=== PATIENT | female | born 1985 | race Hispanic/Latino ===

== ENCOUNTER 2020-11-14 00:31 | Emergency (ER) | payer SELFPAY ==
--- OUTSIDE RECORDS SUMMARY | 2020-11-14 00:34 | XMS REPORT | Continuity of Care Document ---
:1985 Author Organization [facility] t Address [address] [place] [address] Care Team Providers Name Role Phone Antionette Greenberg DO Attending Clinician Doctor Unassigned, Name Attending Clinician Unavailable Problems This patient has no known problems. Allergies, Adverse Reactions, Alerts This patient has no known allergies or adverse reactions. Medications This patient has no known medications. Procedures This patient has no known procedures. Encounters Start End Encounter Admission Attending Care Care Encounter Source Date/Time Date/Time Type Type Clinicians Facility Department ID 2020-11-11 2020-11-11 Emergency NANCY Greenberg [id number] 13:42:00 14:49:00 Aura Shea [id number] [place] [id number] [place] [id number] 2020-11-11 2020-11-11 Orders Doctor AUSTIN [id number] 00:00:00 00:00:00 Only UnassANNE mayorga [id number] [id number] Results This patient has no known results.
--- OUTSIDE RECORDS SUMMARY | 2020-11-14 00:34 | XMS REPORT | Summary of Care ---
:1985 Author Organization [facility] - Health Address [address] [place] [id number] Care Team Providers Name Role Phone Pcp, Does Not Have A Primary Care Provider Encounter Details Date Type Department Care Team Description 11/11/2020 Orders Only [facility] Doctor Unassigned, No [address] [facility] [place] [address] [address] [place] [address] Allergies No Known Allergiesdocumented as of this encounter (statuses as of 11/11/2020) Medications Medication Sig Dispensed Refills Start Date End Date Status meclizine (ANTIVERT) Take 1 Tab by 20 Tab 0 07/04/2015 Active 25 mg tablet mouth every 6 (six) hours as needed for Dizziness. ondansetron (ZOFRAN) 4 Take 1 Tab by 12 Tab 0 07/04/2015 Active mg tablet mouth every 8 (eight) hours. ondansetron (ZOFRAN) 4 Take 1 tablet by 12 tablet 0 09/15/2019 Active mg tabletIndications: mouth every 8 Alcoholic intoxication (eight) hours as without complication needed for Nausea and Vomiting (N/V). documented as of this encounter (statuses as of 11/11/2020) Active Problems No known active problemsdocumented as of this encounter (statuses as of 11/11/2020) Social History Tobacco Use Types Packs/Day Years Used Date Never Assessed Sex Assigned at Date Recorded Not on file documented as of this encounter Last Filed Vital Signs Not on filedocumented in this encounter Plan of Treatment Health Maintenance Due Date Last Done Comments VARICELLA VACCINES (1 of 2 1985 - 2-dose childhood series) Depression Screening 1996 DTaP,Tdap,and Td Vaccines 2003 (1 - Tdap) PAP SMEAR 04/24/2011 04/24/2008, 11/24/2006, 02/08/2006, Additional history exists INFLUENZA VACCINE (#1) 2020 PNEUMOCOCCAL 0-64 YEARS Aged Out No longe r eligible COMBINED SERIES based on patient 's age to complete this topic documented as of this encounter Procedures Procedure Name Priority Date/Time Associated Diagnosis Comme nts CONSENT/REFUSAL FOR Routine 11/11/2020 1:11 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
--- OUTSIDE RECORDS SUMMARY | 2020-11-14 00:34 | XMS REPORT | Summary of Care ---
:1985 Author Organization [facility] Address [address] [place] [id number] Care Team Providers Name Role Phone Pcp, Does Not Have A Primary Care Provider Reason for Visit Reason Comments Other covid like symptoms Auth/Cert Status Reason Specialty Diagnoses / Referred By Referred To Procedures Contact Contact Emergency [facility] ergency Dept [address] [place] [address] Fax: Encounter Details Date Type Department Care Team Description 11/11/2020 Emergency ADC-Emergency Aura Greenberg, Cough ( Primary Dx); Department DO Person under investigation for COVID-[address] [place] [address] [place] [address] [phone] Allergies No Known Allergiesdocumented as of this encounter (statuses as of 11/11/2020) Medications Medication Sig Dispensed Refills Start Date End Date Status meclizine (ANTIVERT) Take 1 Tab by 20 Tab 0 07/04/2015 Active 25 mg tablet mouth every 6 (six) hours as needed for Dizziness. ondansetron (ZOFRAN) Take 1 Tab by 12 Tab 0 07/04/2015 Active 4 mg tablet mouth every 8 (eight) hours. ondansetron (ZOFRAN) Take 1 tablet by 12 tablet 0 09/15/2019 Active 4 mg mouth every 8 tabletIndications: (eight) hours as Alcoholic needed for Nausea intoxication without and Vomiting complication (N/V). codeine-guaifenesin Take 5 mL by 140 mL 0 11/11/20202020 Active 10-100 mg/5 mL mouth every 6 solutionIndications: (six) hours as acute pain needed for Cough for up to 7 days. Indications: acute pain documented as of this encounter (statuses as of 11/11/2020) Active Problems No known active problemsdocumented as of this encounter (statuses as of 11/11/2020) Social History Tobacco Use Types Packs/Day Years Used Date Never Assessed Sex Assigned at Date Recorded Not on file COVID-19 Exposure Response Date Recorded In the last month, have you been in contact with No / Unsure 11/11/2020 1:27 PM PROCESS LABORATORY SPECIALIST someone who was confirmed or suspected to have Coronavirus / COVID-19? documented as of this encounter Last Filed Vital Signs Vital Sign Reading Time Taken Comments Blood Pressure 110/80 11/11/2020 2:43 PM PROCESS LABORATORY SPECIALIST Pulse 98 11/11/2020 2:43 PM PROCESS LABORATORY SPECIALIST Temperature 37.9 C (100.3 F) 11/11/2020 2:43 PM PROCESS LABORATORY SPECIALIST Respiratory Rate 20 11/11/2020 2:43 PM PROCESS LABORATORY SPECIALIST Oxygen Saturation 97% 11/11/2020 2:43 PM PROCESS LABORATORY SPECIALIST Inhaled Oxygen Concentration - - Weight 77.1 kg (170 lb) 11/11/2020 1:30 PM PROCESS LABORATORY SPECIALIST Height 149.9 cm (4' 11") 11/11/2020 1:30 PM PROCESS LABORATORY SPECIALIST Body Mass Index 34.34 11/11/2020 1:30 PM PROCESS LABORATORY SPECIALIST documented in this encounter Discharge Instructions Aura You DO - 1DIAGNOSIS 1. Possible COVID NO LIFE-THREATENING FINDINGS ON TODAY'S EXAM. PROCEDURES IN THE ER TODAY: Covid test MEDICATIONS ADMINISTERED IN THE ER TODAY: None YOUR PRESCRIPTIONS AND [id number] MEDICATION RECOMMENDATIONS: Robitussin AC by mouth every 6 hours as needed for cough. Do not drive while taking this medication. SPECIAL CARE INSTRUCTIONS: None FOLLOW-UP RECOMMENDATIONS: RECOMMEND FOLLOW-UP WITH A PRIMARY CARE PROVIDER OR SPECIALIST IN 2-5 DAYS, ESPECIALLY IF NO IMPROVEMENT IN SYMPTOMS. TO FOLLOW-UP WITHIN THE [facility], TRY THESE OPTIONS (CLINIC APPOINTMENTS AVAILABLE ON OFBH-DG-JNDH BASIS): 1. SCHEDULE AN APPOINTMENT ONLINE AT [email or web address] 2. OR CALL THE [facility] AT OR 3. OR CALL YOUR [facility] PHYSICIAN'S OFFICE DIRECTLY IF YOU ARE ALREADY AN ESTABLISHED [facility] PATIENT. OR, YOU MAY FOLLOW-UP WITH A PROVIDER OF YOUR CHOICE, SUCH : 1. A PHYSICIAN OF YOUR CHOICE 2. [facility], . LOCATIONS IN [facility] 3. [facility], [address] [place], [place]; [phone] RETURN TO ER FOR WORSENING OF SYMPTOMS. AttachmentsThe following attachments cannot be sent through Care Everywhere. Coronavirus Disease 2019, Caring for Yourself and Others (Libyan)documented in this encounter ED Notes Alma Ragland RN - 11/11/2020 1:28 PM CSTPatient tested negative for covid yesterday. Patient is having sob, fever, chills, diareah, loss of smell and taste since last Tuesday. Denies medical History. On one minute ambulation patient retained O2 sat 97% Aura Quinterso DO - 11/11/2020 1:12 PM CST [facility] Emergency Department Note Patient Name: Giovanna Lou Date of : 1985 35 year old female Treatment Room: [address] Primary Care Physician: PATIENT DOES NOT HAVE A PCP Patient Escorted by: Self [9] Mode of Arrival: Personal means [1] EMS Treatment Prior to ED Arrival: Travel and Exposure Screening: Symptoms Does patient have any of these symptoms?: (not recorded) Exposure Screening Has patient had contact with someone with a communicable disease in the last month?: (not recorded) Diseases exposed to:: (not recorded) Is Patient ?: (not recorded) Exposure Date: (not recorded) Chief Complaint: Chief Complaint Patient presents with Other covid like symptoms History of Present Illness: Patient presents for eval for cough, sob, diarrhea and not feeling well for about a week. Sick contacts at home. Does smoke. No h/o asthma or COPD. No h/o DM. Has been using hot tea, aspiring, Motrinand Tylenol at home. Also drinking plenty of fluids and juice. Had a negative covid test last week. Yesterday lost her sense of smell and taste. Also with some diarrhea today. No n/v. No chest pain. Here for eval. Past Medical History/Immunizations: No past medical history on file. Tetanus received in last 5 years: Unknown Childhood immunizations: Up-to-date Allergies: No Known Allergies Past Social History: Substance & Sexual Activity No substance use or sexual activity history on file. Past Surgical History: No past surgical history on file. Review of Systems: Review of Systems Constitutional: Negative for chills and fever. Respiratory: Positive for cough and shortness of breath. Cardiovascular: Negative for chest pain. Gastrointestinal: Positive for diarrhea. Negative for abdominal pain, nausea and vomiting. Genitourinary: Negative for dysuria. Musculoskeletal: Negative for arthralgias, neck pain and neck stiffness. Skin: Negative for wound. Neurological: Negative for dizziness and seizures. Psychiatric/Behavioral: Negative for agitation. Physical Exam: ED Triage Vitals [11/11/20 1330] Weight 77.1 kg (170 lb) Actual or estimated Height 1.499 m (4' 11") BP 108/78 Pulse 109 Resp 19 Temp 37.9 C (100.3 F) Temp source Oral SpO2 98 % Measured on Room air Physical Exam Vitals signs and nursing note reviewed. Constitutional: Appearance: Normal appearance. HENT: Head: Normocephalic and atraumatic. Neck: Musculoskeletal: Normal range of motion and neck supple. Cardiovascular: Rate and Rhythm: Normal rate and regular rhythm. Pulses: Normal pulses. Pulmonary: Effort: Pulmonary effort is normal. No respiratory distress. Breath sounds: No wheezing. Abdominal: General: There is no distension. Palpations: Abdomen is soft. There is no mass. Tenderness: There is no abdominal tenderness. There is no guarding. Musculoskeletal: Normal range of motion. Skin: General: Skin is warm and dry. Neurological: General: No focal deficit present. Mental Status: She is alert and oriented to person, place, and time. Radiology: No results found for this visit on 11/11/20. Lab Results (24h): No results found for this or any previous visit (from the past 24 hour(s)). Orders and Treatments: Orders Placed This Encounter Procedures CORONAVIRUS COVID-19 TESTING Orders Placed This Encounter Medications codeine-guaifenesin 10-100 mg/5 mL solution ED COURSE patient presents for eval for cough, sob, fevers and not feeling well x one week. Had negative covid test last week. Yesterday started with loss of smell and taste as well as diarrhea. Sick contacts at home. Using otc meds at home. Drinking plenty of fluids. VSS here in the EC. Ambulatory O2 sat of 97%. Lungs clear. Will send covid pcr. Will give rx for robitussin ac. Stable here in the EC and is ok for discharge home with PCP f/u. MDM: Coding Scoring Tools: No data recorded Diagnosis/Impression: ICD-10-CM ICD-9-CM 1. Cough R05 786.2 2. Person under investigation for COVID-19 Z20.822 V01.79 Disposition/Condition: ED Disposition ED Disposition Condition Comment Disch - Home Stable Discharge Medications: Patient's Medications START taking these medications CODEINE-GUAIFENESIN 10-100 MG/5 ML SOLUTION Take 5 mL by mouth every 6 (six) hours as needed forCough for up to 7 days. Indications: acute pain CONTINUE taking these medications which have NOT CHANGED MECLIZINE (ANTIVERT) 25 MG TABLET Take 1 Tab by mouth every 6 (six) hours as needed for Dizziness. ONDANSETRON (ZOFRAN) 4 MG TABLET Take 1 Tab by mouth every 8 (eight) hours. ONDANSETRON (ZOFRAN) 4 MG TABLET Take 1 tablet by mouth every 8 (eight) hours as needed for Nausea and Vomiting (N/V). START taking Modified Medications as Prescribed No medications on file STOP taking these medications No medications on file Follow-up: Electronically signed by: Auar Greenberg DO 11/11/2020 1:48 PM ESS LABORATORY SPECIALIST documented in this encounter Miscellaneous Notes ED Nurse Note - Alma Ragland RN - 11/11/2020 2:48 PM CSTDischarge teaching given. Patient verbalized understanding. Vitals stable. No acute distress noted. Patient ambulatory documented in this encounter Plan of Treatment Name Type Priority Associated Diagnoses Date/Ti me CORONAVIRUS COVID-19 LAB STAT Cough 021 2:01 PM PROCESS LABORATORY SPECIALIST TESTING Name Type Priority Associated Diagnoses Order S chedule CORONAVIRUS COVID-19 LAB Routine Cough ONCE fo r 1 Occurrences TESTING starting 2020 until 11/11/2020 Health Maintenance Due Date Last Done Comments [...] Name Priority Date/Time Associated Diagnosis Comme nts NOTICE OF PRIVACY Routine 11/11/2020 1:11 PM PROCESS LABORATORY SPECIALIST PRACTICES documented in this encounter Results Not on filedocumented in this encounter Visit Diagnoses Diagnosis Cough - Primary Person under investigation for COVID-19 documented in this encounter Additional Health Concerns Infection Onset Date Last Indicated Resolved Time COVID-19 Rule Out 11/11/2020 11/11/2020 documented as of this encounter
[2020-11-14] MEDS ORDERED: AZITHROMYCIN 500 MG INJ IVPB ONE (01:44)
[2020-11-14] MEDS ORDERED: dexAMETHasone 10 MG/ML VIAL ONE (01:45)
[2020-11-14] MEDS ORDERED: NA CHLORIDE 0.9% 250 ML ONE (01:45)
[2020-11-14] MEDS ORDERED: ASPIRIN 81 MG CHEWABLE TABLET ONE (01:45)
[2020-11-14] MEDS ORDERED: CEFTRIAXONE/SWI 1gm 1 GM/10 ML SYR ONE (01:46)
[2020-11-14] MEDS ORDERED: ALBUTEROL INHALER 60 PUFF/8 GM IH ONE (01:46)
[2020-11-14] MEDS ORDERED: FAMOTIDINE 20 MG/2 ML VIAL IV ONE (01:46)
[2020-11-14] MEDS ORDERED: NA CHLORIDE 0.9% 1,000 ML ONE (01:46)
[2020-11-14 01:50] LABS: Absolute Lymphocytes (CBC) 1.5 K/uL (0.7-4.9); Basophils % 0.2 % (0-1.3); Hematocrit 37.8 % (36.0-45.0); Lymphocytes % 46.1 % (15.3-44.8); MPV 7.7 fL (7.6-11.3); RBC Red Blood Cell Count 4.31 M/uL (3.86-4.86)
[2020-11-14 02:15] LABS: ALT/SGPT 28 U/L (12-78); AST/SGOT 31 U/L (15-37); Albumin 3.6 g/dL (3.4-5.0); Alkaline Phosphatase 81 U/L (45-117); BUN Blood Urea Nitrogen 7 mg/dL (7-18); Bicarbonate 27 mmol/L (21-32); Bilirubin Direct < 0.1 mg/dL (0-0.2); Bilirubin Total 0.3 mg/dL (0.2-1.0); Ferritin 248.6 ng/mL (8-388); Glucose Level 95 mg/dL (74-106); Magnesium 2.2 mg/dL (1.8-2.4); NT PRO-BNP 12 pg/mL (<125); Potassium 3.8 mmol/L (3.5-5.1); Sodium Level 141 mmol/L (136-145); Troponin (Emerg Dept Use Only) < 0.02 ng/mL (0.0-0.045)
--- NOTE | 2020-11-14 03:27 | ER ---
Nurse's Notes [facility] Name: Giovanna Lou Age: 35 yrs Sex: Female : 1985 Arrival Date: 11/14/2020 Time: 00:42 Bed 14 Private MD: Diagnosis: SARS-associated coronavirus as the cause of diseases classified elsewhere-covid 19;Dyspnea;Other viral pneumonia-multifocal covid 19 Presentation: 11/14 00:43 Acuity: CECILIA 4 sg 00:43 Chief complaint: Patient states: I was swabbed on Tuesday, November 10 and told sg positive result. Im feeling shortness of breath and having a dry cough. No other symptoms reported for triage at this time. Coronavirus screen: Client denies travel out of the [place] in the last 14 days. cough unrelated to allergies, fatigue, shortness of breath, Client presents with at least one sign or symptom that may indicate coronavirus-19. Standard/surgical mask placed on the client. Provider contacted for isolation considerations. Client reports previous positive COVID test result. Date of collection: November 10, 2020 are currently unavailable. Staff notified of need for isolation. Ebola Screen: Patient negative for fever greater than or equal to 101.5 degrees Fahrenheit, and additional compatible Ebola Virus Disease symptoms Patient denies exposure to infectious person. Patient denies travel to an Ebola-affected area in the 21 days before illness onset. No symptoms or risks identified at this time. Initial Sepsis Screen: Does the patient meet any 2 criteria? No. Patient's initial sepsis screen is negative. Does the patient have a suspected source of infection? No. Patient's initial sepsis screen is negative. Risk Assessment: Do you want to hurt yourself or someone else? Patient reports no desire to harm self or others. Onset of symptoms was November 14, 2020. Care prior to arrival: None. Transition of care: patient was not received from another setting of care. 00:43 Method Of Arrival: Ambulatory sg Triage Assessment: 00:43 General: Appears in no apparent distress. well groomed, well developed, well nourished, sg Behavior is calm, cooperative, appropriate for age. Pain: Complains of pain in body aches. Respiratory: Reports shortness of breath cough that is Onset: The symptoms/episode began/occurred yesterday, the patient has mild shortness of breath. Derm: Skin is pink, warm \T\ dry. SODA FLAKER: 03:00 LMP N/A - Unknown Historical: - Allergies: 00:44 No Known Allergies; sg - PMHx: 00:58 None; sg - PSHx: 00:44 Cholecystectomy; sg - Immunization history:: Adult Immunizations up to date. - Social history:: Smoking status: Patient denies any tobacco usage or history of. Screenin:56 Abuse screen: Denies threats or abuse. Denies injuries from another. Nutritional rv screening: No deficits noted. Tuberculosis screening: No symptoms or risk factors identified. Fall Risk None identified. Assessment: 01:55 General: Appears comfortable, Behavior is calm, cooperative. Pain: Denies pain. Neuro: rv Level of Consciousness is awake, alert, obeys commands, Oriented to person, place, time, situation. Cardiovascular: Patient's skin is warm and dry. Rhythm is sinus rhythm. Respiratory: Reports cough that is hacking, persistent Airway is patent Respiratory effort is even, unlabored, Breath sounds are coarse bilaterally. Derm: Skin is intact. 03:00 Reassessment: Patient appears in no apparent distress at this time. No changes from previously documented assessment. Patient and/or family updated on plan of care and expected duration. Pain level reassessed. Patient is alert, oriented x 3, equal unlabored respirations, skin warm/dry/pink. 04:00 Reassessment: Patient appears in no apparent distress at this time. Patient and/or family updated on plan of care and expected duration. Pain level reassessed. Patient is alert, oriented x 3, equal unlabored respirations, skin warm/dry/pink. Vital Signs: 00:43 Pulse 88; Resp 20 S; Pulse Ox 95% on R/A; sg 00:43 BP 132 / 88; Temp 98.8; Pain 2/10; sg 02:30 BP 117 / 75; Pulse 73; Resp 18; Pulse Ox 96% on R/A; 04:00 BP 119 / 77; Pulse 80; Resp 18; Pulse Ox 95% on R/A; ED Course: 00:42 Patient arrived in ED. es 00:43 Triage completed. sg 00:44 Arm band placed on. sg 01:00 Adriel Mclaughlin MD is Attending Physician. cassy 01:20 Inserted saline lock: 20 gauge in right antecubital area, using aseptic technique. rv Blood collected. 01:20 Initial lab(s) drawn, by me, sent to lab. First set of blood cultures drawn by me. rv 01:35 Second set of blood cultures drawn by me. rv 01:56 Patient has correct armband on for positive identification. toxicology teacher on. Pulse rv ox on. NIBP on. 02:02 Gerri Bella RN is Primary Nurse. 03:26 Attila Coyle MD is Referral Physician. cassy 04:07 No provider procedures requiring assistance completed. IV discontinued, intact, wh bleeding controlled, No redness/swelling at site. Administered Medications: 01:50 Drug: NS 0.9% 500 ml Route: IV; Rate: bolus; Site: right antecubital; 02:38 Follow up: Response: No adverse reaction; IV Status: Completed infusion 01:52 Drug: Decadron - Dexamethasone 10 mg Route: IVP; Site: right antecubital; 02:38 Follow up: Response: No adverse reaction 01:54 Drug: Rocephin 1 grams Route: IV; Rate: per protocol; Site: right antecubital; 02:37 Follow up: Response: No adverse reaction; IV Status: Completed infusion wh 01:56 Drug: Pepcid 20 mg Route: IVP; Site: right antecubital; 02:38 Follow up: Response: No adverse reaction 01:58 Drug: Zithromax 500 mg Route: IVPB; Infused Over: 1 hrs; Site: right antecubital; 02:37 Follow up: Response: No adverse reaction; IV Status: Completed infusion 02:00 Drug: Aspirin 81 mg Route: PO; 02:37 Follow up: Response: No adverse reaction 02:02 Drug: Albuterol HFA Inhaler 4 puffs Route: Inhalation; 02:37 Follow up: Response: No adverse reaction 02:39 Drug: NS 0.9% 1000 ml Route: IV; Rate: 125 ml/hr; Site: right antecubital; 04:07 Follow up: Response: No adverse reaction; IV Status: Order to discontinue infusion Outcome: 03:26 Discharge ordered by . cassy 04:07 Discharged to home ambulatory. 04:07 Condition: stable 04:07 Discharge instructions given to patient, Instructed on discharge instructions, follow up and referral plans. medication usage, POC Demonstrated understanding of instructions, follow-up care, medications, POC Prescriptions given X X5 04:08 Patient left the ED. Signatures: Trae Walton RN RN Adriel London MD MD cha Salyer, Edna es Habalo, Winsy, RN RN Rob Scott RN RN rv
--- NOTE | 2020-11-14 03:27 | EDPHYS ---
Physician Documentation [facility] Name: Giovanna Lou Age: 35 yrs Sex: Female : 1985 Arrival Date: 11/14/2020 Time: 00:42 Bed 14 Private MD: ED Physician Adriel Mclaughlin HPI: 11/14 02:52 This 35 yrs old Female presents to ER via Ambulatory with complaints of cassy Breathing Difficulty, + Covid test. 02:52 The patient has shortness of breath at rest, with light activity. Onset: The cassy symptoms/episode began/occurred 3 day(s) ago. Duration: The symptoms are continuous, and are steadily getting worse. The patient's shortness of breath has no apparent modifying factors. Associated signs and symptoms: Pertinent positives: non-productive cough, fever. Severity of symptoms: At their worst the symptoms were mild in the emergency department the symptoms are unchanged. The patient has not experienced similar symptoms in the past. 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 - Social history:: Smoking status: Patient denies any tobacco usage or history of. ROS: 02:53 Constitutional: Negative for fever, chills, and weight loss, Eyes: Negative for injury, cassy pain, redness, and discharge, ENT: Negative for injury, pain, and discharge, Neck: Negative for injury, pain, and swelling, Cardiovascular: Negative for chest pain, palpitations, and edema, Abdomen/GI: Negative for abdominal pain, nausea, vomiting, diarrhea, and constipation, Back: Negative for injury and pain, : Negative for injury, bleeding, discharge, and swelling, MS/Extremity: Negative for injury and deformity, Skin: Negative for injury, rash, and discoloration, Neuro: Negative for headache, weakness, numbness, tingling, and seizure, Psych: Negative for depression, anxiety, suicide ideation, homicidal ideation, and hallucinations, Allergy/Immunology: Negative for hives, rash, and allergies, Endocrine: Negative for neck swelling, polydipsia, polyuria, polyphagia, and marked weight changes, Hematologic/Lymphatic: Negative for swollen nodes, abnormal bleeding, and unusual bruising. 02:53 Respiratory: Positive for cough, with no reported sputum, dyspnea on exertion, shortness of breath, on exertion. wheezing, expiratory. Exam: 02:53 Constitutional: This is a well developed, well nourished patient who is awake, alert, cassy and in no acute distress. Head/Face: Normocephalic, atraumatic. Eyes: Pupils equal round and reactive to light, extra-ocular motions intact. Lids and lashes normal. Conjunctiva and sclera are non-icteric and not injected. Cornea within normal limits. Periorbital areas with no swelling, redness, or edema. ENT: Nares patent. No nasal discharge, no septal abnormalities noted. Tympanic membranes are normal and external auditory canals are clear. Oropharynx with no redness, swelling, or masses, exudates, or evidence of obstruction, uvula midline. Mucous membranes moist. Neck: Trachea midline, no thyromegaly or masses palpated, and no cervical lymphadenopathy. Supple, full range of motion without nuchal rigidity, or vertebral point tenderness. No Meningismus. Chest/axilla: Normal chest wall appearance and motion. Nontender with no deformity. No lesions are appreciated. Cardiovascular: Regular rate and rhythm with a normal S1 and S2. No gallops, murmurs, or rubs. Normal PMI, no JVD. No pulse deficits. Abdomen/GI: Soft, non-tender, with normal bowel sounds. No distension or tympany. No guarding or rebound. No evidence of tenderness throughout. Back: No spinal tenderness. No costovertebral tenderness. Full range of motion. Skin: Warm, dry with normal turgor. Normal color with no rashes, no lesions, and no evidence of cellulitis. MS/ Extremity: Pulses equal, no cyanosis. Neurovascular intact. Full, normal range of motion. Neuro: Awake and alert, GCS 15, oriented to person, place, time, and situation. Cranial nerves II-XII grossly intact. Motor strength 5/5 in all extremities. Sensory grossly intact. Cerebellar exam normal. Normal gait. Psych: Awake, alert, with orientation to person, place and time. Behavior, mood, and affect are within normal limits. 02:53 ECG was reviewed by the Attending Physician. 02:53 Respiratory: the patient does not display signs of respiratory distress, Respirations: normal, symetrical, no use of accessory muscles, no grunting, no evidence of nasal flaring, no appreciated paradoxical movements, no prolonged exhalations, no pursed lip breathing, no retractions, no shallow respirations, no splinting, no tachypnea, Breath sounds: decreased breath sounds, that are mild, rhonchi, that are mild, stridor, is not appreciated, + upper airway congestion. Respiratory rate: 20 02:53 Musculoskeletal/extremity: DVT Exam: No signs of deep vein thrombosis. no pain, no swelling, no tenderness, negative Homans' sign noted on exam, no appreciated bluish discoloration, no erythema, no increased warmth. Vital Signs: 00:43 Pulse 88; Resp 20 S; Pulse Ox 95% on R/A; sg 00:43 BP 132 / 88; Temp 98.8; Pain 2/10; sg 02:30 BP 117 / 75; Pulse 73; Resp 18; Pulse Ox 96% on R/A; wh 04:00 BP 119 / 77; Pulse 80; Resp 18; Pulse Ox 95% on R/A; wh MDM: 01:00 Patient medically screened. [facility] 02:55 Differential diagnosis: asthma, Bronchitis CHF exacerbation, Chronic Obstructive cassy Pulmonary Disease pneumonia, pulmonary edema, Pulmonary Embolism reactive airway disease. Antibiotic administration: The patient is discharged and will get outpatient antibiotics, Zithromax. The patient's Wells Deep Vein Thrombosis Score was calculated as follows: Total Score: 0-2 Pts- Low Risk. Differential Diagnosis: Bronchitis Influenza Sinusitis Pharyngitis Pneumonia. The patient's pulmonary embolism risk score was calculated as follows: Total Score: 0-2 points. This patient was found to be at low risk for a pulmonary embolism by using the Well's assessment criteria. Immunization status:. Data reviewed: vital signs, nurses notes, lab test result(s), EKG, radiologic studies, CT scan, plain films. Data interpreted: bit gatherer: rate is 88 beats/min, rhythm is regular, Pulse oximetry: on room air is 95 %. Test interpretation: by ED physician or midlevel provider: ECG, plain radiologic studies. 11/14 00:05 Order name: Basic Metabolic Panel [facility] 11/14 00:05 Order name: CBC with Diff [facility] 11/14 00:05 Order name: LFT's [facility] 11/14 00:05 Order name: Magnesium [facility] 01/22 01:05 Order name: NT PRO-BNP [facility] 11/14 01:05 Order name: Troponin (emerg Dept Use Only) [facility] 11/14 01:05 Order name: D-Dimer [facility] 11/14 01:05 Order name: Blood Culture Adult (2) [facility] 11/14 01:05 Order name: Ferritin [facility] 11/14 01:05 Order name: CRP [facility] 11/14 01:52 Order name: CBC with Automated Diff; Complete Time: 01:57 EDMS 11/14 01:55 Order name: D-Dimer; Complete Time: 01:57 EDMS 11/14 02:15 Order name: Basic Metabolic Panel; Complete Time: 02:48 EDMS 11/14 02:15 Order name: Liver (Hepatic) Function; Complete Time: 02:48 EDMS 11/14 01:05 Order name: XRAY Chest (1 view) [facility] 11/14 01:05 Order name: EKG; Complete Time: 01:06 [facility] 11/14 01:58 Order name: CT Chest For PE Angio [facility] 11/14 02:15 Order name: Troponin (Emerg Dept Use Only); Complete Time: 02:48 EDMS 11/14 02:15 Order name: NT PRO-BNP; Complete Time: 02:48 EDMS 11/14 02:15 Order name: C-Reactive Protein; Complete Time: 02:48 EDMS 11/14 02:15 Order name: Magnesium; Complete Time: 02:48 EDMS 11/14 02:15 Order name: Ferritin; Complete Time: 02:48 EDMS 11/14 01:05 Order name: Cardiac monitoring; Complete Time: 02:05 [facility] 11/14 01:05 Order name: EKG - Nurse/Tech; Complete Time: 02:05 [facility] 11/14 01:05 Order name: IV Saline Lock; Complete Time: 02:05 [facility] 11/14 01:05 Order name: Labs collected and sent; Complete Time: 02:05 [facility] 11/14 01:05 Order name: O2 Per Protocol; Complete Time: 02:05 [facility] 11/14 01:05 Order name: O2 Sat Monitoring; Complete Time: 02:05 [facility] EC:53 Rate is 76 beats/min. Rhythm is regular. QRS [place] is Normal. MO interval is normal. QRS cassy interval is normal. QT interval is normal. No Q waves. T waves are Normal. No ST changes noted. Clinical impression: Normal ECG and No evidence of ischemia. Interpreted by me. Reviewed by me. Administered Medications: 01:50 Drug: NS 0.9% 500 ml Route: IV; Rate: bolus; Site: right antecubital; 02:38 Follow up: Response: No adverse reaction; IV Status: Completed infusion 01:52 Drug: Decadron - Dexamethasone 10 mg Route: IVP; Site: right antecubital; 02:38 Follow up: Response: No adverse reaction 01:54 Drug: Rocephin 1 grams Route: IV; Rate: per protocol; Site: right antecubital; 02:37 Follow up: Response: No adverse reaction; IV Status: Completed infusion 01:56 Drug: Pepcid 20 mg Route: IVP; Site: right antecubital; 02:38 Follow up: Response: No adverse reaction 01:58 Drug: Zithromax 500 mg Route: IVPB; Infused Over: 1 hrs; Site: right antecubital; 02:37 Follow up: Response: No adverse reaction; IV Status: Completed infusion 02:00 Drug: Aspirin 81 mg Route: PO; 02:37 Follow up: Response: No adverse reaction 02:02 Drug: Albuterol HFA Inhaler 4 puffs Route: Inhalation; 02:37 Follow up: Response: No adverse reaction 02:39 Drug: NS 0.9% 1000 ml Route: IV; Rate: 125 ml/hr; Site: right antecubital; 04:07 Follow up: Response: No adverse reaction; IV Status: Order to discontinue infusion Disposition: 11/14/20 03:26 Discharged to Home. Impression: SARS-associated coronavirus as the cause of diseases classified elsewhere - covid 19, Dyspnea, Other viral pneumonia - multifocal covid 19. - Condition is Stable. - Discharge Instructions: Shortness of Breath, Shortness of Breath, Xmec-ht-Opqa, Community-Acquired Pneumonia, Adult, Rioh-pk-Vvik, Aspirin and Your Heart. - Prescriptions for dexamethasone 2 mg Oral tablet - take 1 tablet by ORAL route 3 times per day; 15 tablet. ivermectin 3 mg Oral tablet - take 4 tablet by ORAL route once daily x1 dose on day 1 and day 3.; 8 tablet. Albuterol Sulfate 90 mcg/actuation - inhale 1-2 puff by INHALATION route every 4-6 hours; 1 Inhaler. Pepcid 20 mg Oral Tablet - take 1 tablet by ORAL route every 12 hours; 20 tablet. Zithromax 500 mg Oral Tablet - take 1 tablet by ORAL route once daily for 4 days; 4 tablet. Bromfed DM 2- 30-10 mg/5 mL Oral syrup - take 10 milliliter by ORAL route every 6 hours; 180 milliliter. - Medication Reconciliation Form, Thank You Letter, Antibiotic Education, Prescription Opioid Use form. - Follow up: Private Physician; When: 2 - 3 days; Reason: Recheck today's complaints, Continuance of care, Re-evaluation by your physician. Follow up: Attila Coyle; When: 2 - 3 days; Reason: Recheck today's complaints, Continuance of care, Re-evaluation by your physician. - Problem is new. - Symptoms have improved. Signatures: Dispatcher [employer] EDTrae Carrasco RN RN sg Anderson, Corey, MD MD cha Habalo, Winsy, RN RN Corrections: (The following items were deleted from the chart) 04:08 03:26 11/14/2020 03:26 Discharged to Home. Impression: SARS-associated coronavirus as wh the cause of diseases classified elsewhere - covid 19; Dyspnea; Other viral pneumonia - multifocal covid 19. Condition is Stable. Discharge Instructions: Shortness of Breath, Shortness of Breath, Yugy-bh-Rihl, Community-Acquired Pneumonia, Adult, Expu-gx-Ekwg, Aspirin and Your Heart. Prescriptions for dexamethasone 2 mg Oral tablet - take 1 tablet by ORAL route 3 times per day; 15 tablet, ivermectin 3 mg Oral tablet - take 4 tablet by ORAL route once daily x1 dose on day 1 and day 3.; 8 tablet, Albuterol Sulfate 90 mcg/actuation - inhale 1-2 puff by INHALATION route every 4-6 hours; 1 Inhaler, Pepcid 20 mg Oral Tablet - take 1 tablet by ORAL route every 12 hours; 20 tablet, Zithromax 500 mg Oral Tablet - take 1 tablet by ORAL route once daily for 4 days; 4 tablet. and Forms are Medication Reconciliation Form, Thank You Letter, Antibiotic Education, Prescription Opioid Use. Follow up: Private Physician; When: 2 - 3 days; Reason: Recheck today's complaints, Continuance of care, Re-evaluation by your physician. Follow up: Attila Coyle; When: 2 - 3 days; Reason: Recheck today's complaints, Continuance of care, Re-evaluation by your physician. Problem is new. Symptoms have improved. cassy
[2020-11-14 04:13] VITALS: TEMP 98.8
[2020-11-14 04:16] VITALS: BP 119/77; O2SAT 95
--- NOTE | 2020-11-14 08:59 | RAD REPORT ---
EXAM DESCRIPTION: RAD - Chest Single View - 11/14/2020 1:36 am CLINICAL HISTORY: Chest pain;Dyspnea;Fever Chest pain. COMPARISON: No comparisons FINDINGS: Portable technique limits examination quality. Mild bilateral interstitial opacities suggest underlying viral bronchitis/infection. The heart is nor mal in size. No displaced fractures.
--- NOTE | 2020-11-14 12:19 | RAD REPORT ---
EXAM DESCRIPTION: Chest For Pe Angio CLINICAL HISTORY: Cough;Dyspnea COMPARISON: None Available. TECHNIQUE: CTA of the chest obtained following the uncomplicated intravenous administration of iodin ated contrast. 3-D/MIP reformatted images of the chest available for evaluation. FINDINGS: Chest: Pulmonary arteries: Contrast bolus is adequate.No filling defects identified in the pulmonary arterie s to suggest pulmonary embolus. Thyroid: No abnormalities of the visualized thyroid. Great Vessels: Great vessels have normal anatomic configuration. Thoracic Aorta: No abnormalities of the thoracic aorta identified. Heart: No cardiomegaly, significant pericardial effusion, or coronary artery atherosclerosis Lymph Nodes: No enlarged mediastinal lymph nodes identified. Esophagus: No abnormalities of the esophagus identified. Other: No additional findings. Lungs: Multifocal central and peripheral bilateral groundglass opacities. Calcified left upper lobe g ranuloma. Pleura: No pleural effusion or pneumothorax. Trachea/Airways: No abnormalities of the visualized trachea or airways. Bones: No destructive osseous lesions. Upper Abdomen: Limited images of the upper abdomen demonstrate no definite abnormalities of visualize d portions of the liver and spleen. IMPRESSION: 1. No pulmonary embolus. 2. Multifocal bilateral groundglass opacities. Commonly reported imaging features of viral pneumoni a are present. Other processes such as influenza pneumonia and organizing pneumonia, as can be seen w ith drug toxicity and connective tissue disease, can cause a similar imaging pattern. PneTyp Reference: https://pubs.rsna.org/doi/full/10.1148/ryct.3878616127 This exam was performed according to our departmental dose-optimization program, which includes autom ated exposure control, adjustment of the mA and/or kV according to patient size and/or use of iterati ve reconstruction technique. Electronically signed by: Russ Valentin 11/14/2020 3:17 AM LEAD BUSINESS ANALYST Due to temporary technical issues with the PACS/Fluency reporting system, reports are being signed by the in house radiologist without review as a courtesy to ensure prompt reporting. The interpreting r adiologist is fully responsible for the content of the report.
== END 2020-11-14 04:08 | disposition home or self-care (01) ==
LOC: ER 00:31
DX: U07.1 COVID-19 (principal); J12.82 Pneumonia due to coronavirus disease 2019
CPT/HCPCS: 36415; 71045; 71275; 80048; 80076; 82728; 83735; 83880; 84484; 85025; 85379; 86140; 87040; 93005; 96361; 96365; 96375; 99285; J0456; J0696; J1100; J7030; J7050; Q9967

== ENCOUNTER 2021-01-11 09:39 | Emergency (ER) | payer SELFPAY ==
--- OUTSIDE RECORDS SUMMARY | 2021-01-11 09:41 | XMS REPORT | Continuity of Care Document ---
:1985 Author Organization [facility] t Address [address] [place] [address] Care Team Providers Name Role Phone Nicki RN Attending Clinician Unavailable Antionette Greenberg DO Attending Clinician Doctor Unassigned, Name Attending Clinician Unavailable Problems This patient has no known problems. Allergies, Adverse Reactions, Alerts This patient has no known allergies or adverse reactions. Medications This patient has no known medications. Procedures This patient has no known procedures. Encounters Start End Encounter Admission Attending Care Care Encounter Source Date/Time Date/Time Type Type Clinicians Facility Department ID 2020-11-17 2020-11-17 Telephone NORMAN Caceres [id number] 00:00:00 00:00:00 Margarette RODRÍGUEZ [id number] 2020-11-11 2020-11-11 Emergency NANCY Greenberg [id number] 13:42:00 14:49:00 Aura Shea [id number] [place] [id number] 2020-11-11 2020-11-11 Orders Doctor AUSTIN [id number] 00:00:00 00:00:00 Only UnassANNE mayorga [id number] [place] [id number] Results This patient has no known results.
--- NOTE | 2021-01-11 10:34 | ER ---
Nurse's Notes [facility] Name: Giovanna Lou Age: 35 yrs Sex: Female : 1985 Arrival Date: 01/11/2021 Time: 09:41 Bed 13 Private MD: Diagnosis: Urinary tract infection, site not specified Presentation: 01/11 09:53 Acuity: CECILIA 4 aa5 09:53 Chief complaint: Chief complaint: Patient states: burning with urination x 4 days ago. aa5 09:53 Coronavirus screen: At this time, the client does not indicate any symptoms associated aa5 with coronavirus-19. Ebola Screen: Patient negative for fever greater than or equal to 101.5 degrees Fahrenheit, and additional compatible Ebola Virus Disease symptoms. Initial Sepsis Screen: Does the patient meet any 2 criteria? HR > 90 bpm. Does the patient have a suspected source of infection? No. Patient's initial sepsis screen is negative. Risk Assessment: Do you want to hurt yourself or someone else? Patient reports no desire to harm self or others. Onset of symptoms was December 2020. 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 - Social history:: Smoking status: Patient denies any tobacco usage or history of. Screenin:35 Abuse screen: Denies threats or abuse. Denies injuries from another. Nutritional iw screening: No deficits noted. Tuberculosis screening: No symptoms or risk factors identified. Fall Risk None identified. Assessment: 10:35 General: Appears in no apparent distress. Behavior is calm, cooperative. Pain: iw Complains of pain in suprapubic area. Neuro: Level of Consciousness is awake, alert, obeys commands, Oriented to person, place, time, situation. Cardiovascular: Patient's skin is warm and dry. Respiratory: Respiratory effort is even, unlabored, Respiratory pattern is regular, symmetrical. : Reports burning with urination. Derm: Skin is intact, is healthy with good turgor. Musculoskeletal: Range of motion: intact in all extremities. Vital Signs: 10:34 BP 116 / 81; Pulse 105; Resp 16; Temp 97.4; Pulse Ox 98% on R/A; iw ED Course: 09:41 Patient arrived in ED. am2 09:52 Arm band placed on. aa5 09:57 Triage completed. aa5 10:05 Adriel Chavez PA is PHCP. cp 10:05 Tevin Friend MD is Attending Physician. cp 10:26 Whit Greenberg, RN is Primary Nurse. iw 10:35 Patient has correct armband on for positive identification. iw 10:35 No provider procedures requiring assistance completed. Patient did not have IV access iw during this emergency room visit. Administered Medications: No medications were administered Outcome: 10:33 Discharge ordered by MD. cp 10:51 Discharged to home ambulatory. iw 10:51 Condition: good 10:51 Discharge instructions given to patient, Instructed on discharge instructions, follow up and referral plans. medication usage, Demonstrated understanding of instructions, follow-up care, medications, Prescriptions given X 2. 10:54 Patient left the ED. iw Signatures: Whit Greenberg RN RN Tisha Jones RN RN aa5 Adriel Chavez PA PA Mary Jane Vides am2 Corrections: (The following items were deleted from the chart) 10:01 09:53 Chief complaint: aa5 aa5 10:03 09:53 Chief complaint: aa5 aa5
--- NOTE | 2021-01-11 10:34 | EDPHYS ---
Physician Documentation [facility] Name: Giovanna Lou Age: 35 yrs Sex: Female : 1985 Arrival Date: 01/11/2021 Time: 09:41 Bed 13 Private MD: ED Physician Tevin Friend HPI: 01/11 10:15 This 35 yrs old Female presents to ER via Ambulatory with complaints of Pain cp With Urination. 10:15 The patient presents with urinary symptoms, dysuria. cp 10:15 Onset: The symptoms/episode began/occurred 4 day(s) ago. Associated signs and symptoms: cp Pertinent positives: dysuria, urinary frequency, Pertinent negatives: constipation, diarrhea, fever, nausea, vaginal bleeding, vaginal discharge, vomiting. Severity of symptoms: in the emergency department the symptoms are unchanged, despite home interventions. ATTENDING PHYSICIAN: 10:51 LMP N/A - iw Historical: - Allergies: 09:53 No Known Allergies; aa5 - PMHx: 09:53 None; aa5 - PSHx: 09:53 Cholecystectomy; aa5 - Immunization history:: Adult Immunizations unknown. - Social history:: Smoking status: Patient denies any tobacco usage or history of. ROS: 10:20 Constitutional: Negative for body aches, chills, fever, poor PO intake. cp 10:20 Eyes: Negative for injury, pain, redness, and discharge. cp 10:20 Cardiovascular: Negative for chest pain. 10:20 Respiratory: Negative for cough, shortness of breath, wheezing. 10:20 Abdomen/GI: Positive for abdominal pain, of the suprapubic area, Negative for nausea, vomiting, and diarrhea. 10:20 Back: Negative for pain at rest, pain with movement, radiated pain. 10:20 : Positive for burning with urination, Negative for vaginal bleeding, vaginal discharge. 10:20 Neuro: Negative for altered mental status, headache, weakness. 10:20 All other systems are negative. Exam: 10:23 Constitutional: The patient appears in no acute distress, alert, awake, comfortable, cp non-toxic, well developed, well nourished. 10:23 Head/Face: Normocephalic, atraumatic. cp 10:23 Eyes: Periorbital structures: appear normal, Conjunctiva: normal, Sclera: no appreciated abnormality, Lids and lashes: appear normal, bilaterally. 10:23 Chest/axilla: Inspection: normal. 10:23 Cardiovascular: Rate: tachycardic. 10:23 Respiratory: the patient does not display signs of respiratory distress, Respirations: normal, no use of accessory muscles, no retractions, labored breathing, is not present. 10:23 Abdomen/GI: Inspection: abdomen appears normal, Palpation: soft, in all quadrants, mild abdominal tenderness, in the suprapubic area. 10:23 Back: pain, is absent, ROM is normal, CVA tenderness, is absent. 10:23 Neuro: Orientation: is normal, Mentation: is normal, Motor: moves all fours, strength is normal, Gait: is steady, at a normal pace, without difficulty. Vital Signs: 10:34 BP 116 / 81; Pulse 105; Resp 16; Temp 97.4; Pulse Ox 98% on R/A; iw MDM: 10:07 Patient medically screened. cp 10:25 Differential diagnosis: pelvic inflammatory disease, urinary tract infection, cp vaginosis, sepsis. 10:32 Data reviewed: vital signs, nurses notes, lab test result(s), and as a result, I will cp discharge patient. 10:32 Counseling: I had a detailed discussion with the patient and/or guardian regarding: the cp historical points, exam findings, and any diagnostic results supporting the discharge/admit diagnosis, lab results, to return to the emergency department if symptoms worsen or persist or if there are any questions or concerns that arise at home. 01/11 10:23 Order name: Urine Dipstick--Ancillary (enter results) eb 01/11 10:23 Order name: Urine --Ancillary (enter results); Complete Time: 06:16 eb 01/11 10:06 Order name: Urine Dipstick-Ancillary (obtain specimen); Complete Time: 10:22 cp 01/11 10:06 Order name: Urine Test (obtain specimen); Complete Time: 10:22 cp 01/11 10:23 Order name: Urine Dipstick-Ancillary; Complete Time: 06:16 EDMS Administered Medications: No medications were administered Disposition: 01/11/21 10:33 Discharged to Home. Impression: Urinary tract infection, site not specified. - Condition is Stable. - Discharge Instructions: Urinary Tract Infection, Adult. - Prescriptions for Pyridium 200 mg Oral Tablet - take 1 tablet by ORAL route every 8 hours for 3 days; 6 tablet. Bactrim DS 800- 160 mg Oral Tablet - take 1 tablet by ORAL route every 12 hours for 7 days; 14 tablet. - Medication Reconciliation Form, Thank You Letter, Antibiotic Education, Prescription Opioid Use form. - Follow up: Private Physician; When: 2 - 3 days; Reason: Worsening of condition. - Problem is new. - Symptoms have improved. Addendum: 01/15/2021 19:35 Co-signature as Attending Physician, Tevin Friend MD. m a2 Signatures: Dispatcher [employer] EDWhit Palm RN RN iw Tisha Jones RN RN aa5 Adriel Chavez PA PA cp Alzahri, Mohammad, MD MD ma2 Corrections: (The following items were deleted from the chart) 01/11 10:54 10:33 01/11/2021 10:33 Discharged to Home. Impression: Urinary tract infection, site iw not specified. Condition is Stable. Forms are Medication Reconciliation Form, Thank You Letter, Antibiotic Education, Prescription Opioid Use. Follow up: Private Physician; When: 2 - 3 days; Reason: Worsening of condition. Problem is new. Symptoms have improved. cp
[2021-01-11 10:58] VITALS: BP 116/81; TEMP 97.4; O2SAT 98
[2021-01-11 11:21] LABS: Urine Glucose NEGATIVE (NEG)
[2021-01-11 11:22] LABS: Urine Blood 2+ (NEG); Urine Protein 2+ (NEG)
== END 2021-01-11 10:54 | disposition home or self-care (01) ==
LOC: ER 09:39
DX: N39.0 Urinary tract infection, site not specified (principal)
CPT/HCPCS: 81003; 81025; 99282

== ENCOUNTER 2021-01-13 09:39 | Emergency (ER) | payer SELFPAY ==
--- OUTSIDE RECORDS SUMMARY | 2021-01-13 09:42 | XMS REPORT | Continuity of Care Document ---
:1985 Author Organization [facility] t Address [address] [place] [address] Dr. Castro. [address] [place] [address] Care Team Providers Name Role Phone Nicki [...] Department ID 2020-11-17 2020-11-17 Telephone NORMAN Caceres [id number] 00:00:00 00:00:00 Margarette RODRÍGUEZ [id number] 2020-11-11 2020-11-11 Emergency NANCY Greenberg [id number] 13:42:00 14:49:00 Aura Shea [id number] [place] [id number] [place] [id number] 2020-11-11 2020-11-11 Orders Doctor AUSTIN [id number] 00:00:00 00:00:00 Only UnassANNE mayorga [id number] [place] [id number] Results This patient has no known results.
--- NOTE | 2021-01-13 10:35 | EDPHYS ---
Physician Documentation [facility] Name: Giovanna Lou Age: 35 yrs Sex: Female : 1985 Arrival Date: 01/13/2021 Time: 09:42 Bed 14 Private MD: ED Physician Jorden Dupree HPI: 01/13 10:30 This 35 yrs old Female presents to ER via Ambulatory with complaints of rn Urinary Problem. 10:30 The patient presents with urinary symptoms, dysuria, frequency. Onset: The rn symptoms/episode began/occurred 1 week(s) ago. Modifying factors: The symptoms are alleviated by nothing, the symptoms are aggravated by urinating. Associated signs and symptoms: Pertinent positives: dysuria, hematuria, Pertinent negatives: fever. Severity of symptoms: At their worst the symptoms were mild, in the emergency department the symptoms are unchanged. The patient has experienced a previous episode. The patient has been recently seen by a physician:. Reports seen recently for UTI, prescribed bactrim, symptoms not improving, reports still with dysuria and now with small amount of blood in urine, no flank or back pain, no fever/vomiting. . DIVER'S TENDER: 10:59 LMP N/A - control method ll1 Historical: - Allergies: 10:01 No Known Allergies; hb - Immunization history:: Adult Immunizations up to date. - Family history:: not pertinent. - Social history:: Smoking status: Patient denies any tobacco usage or history of. - Hospitalizations: : No recent hospitalization is reported. ROS: 10:30 Constitutional: Negative for fever, chills, and weight loss, Eyes: Negative for injury, rn pain, redness, and discharge, Neck: Negative for injury, pain, and swelling, Cardiovascular: Negative for chest pain, palpitations, and edema, Respiratory: Negative for shortness of breath, cough, wheezing, and pleuritic chest pain, Abdomen/GI: Negative for nausea, vomiting, diarrhea, and constipation, Back: Negative for injury and pain, : + dysuria and small amount of hematuria MS/Extremity: Negative for injury and deformity, Neuro: Negative for headache, weakness, numbness, tingling, and seizure. Exam: 10:30 Constitutional: This is a well developed, well nourished patient who is awake, alert, rn and in no acute distress. Head/Face: Normocephalic, atraumatic. Cardiovascular: Regular rate and rhythm. No pulse deficits. Respiratory: No increased work of breathing, no retractions or nasal flaring. Abdomen/GI: soft, non-tender Back: No spinal tenderness. No costovertebral tenderness. Full range of motion. Skin: Warm, dry with normal turgor. Normal color with no rashes, no lesions, and no evidence of cellulitis. Neuro: Awake and alert, GCS 15 Vital Signs: 09:59 BP 109 / 60; Pulse 77; Resp 16; Temp 98.2; Pulse Ox 100% ; Pain 8/10; hb MDM: 10:22 Patient medically screened. rn 10:30 Differential diagnosis: urinary tract infection. Data reviewed: vital signs, nurses rn notes, old medical records, and as a result, I will discharge patient. Counseling: I had a detailed discussion with the patient and/or guardian regarding: the historical points, exam findings, and any diagnostic results supporting the discharge/admit diagnosis, the need for outpatient follow up, to return to the emergency department if symptoms worsen or persist or if there are any questions or concerns that arise at home. Special discussion: I discussed with the patient/guardian in detail that at this point there is no indication for admission to the hospital. It is understood, however, that if the symptoms persist or worsen the patient needs to return immediately for re-evaluation. ED course: Pt still with UTI, no signs of pyelonephritis, stable vitals, likely still cystitis and perhaps resistant to bactrim, will replace abx with rocephin IM here and Vantin at home.. Administered Medications: 10:42 Drug: Rocephin (cefTRIAXone) 1 grams Route: IM; Site: left gluteus; ll1 10:59 Follow up: Response: No adverse reaction; RASS: Alert and Calm (0) ll1 Disposition: 01/13/21 10:34 Discharged to Home. Impression: Urinary tract infection, site not specified. - Condition is Stable. - Discharge Instructions: Urinary Tract Infection, Adult. - Prescriptions for cefpodoxime 100 mg Oral Tablet - take 2 tablet by ORAL route every 12 hours for 10 days take with food; 40 tablet. - Medication Reconciliation Form, Thank You Letter, Antibiotic Education, Prescription Opioid Use form. - Follow up: Private Physician; When: As needed; Reason: Recheck today's complaints, Re-evaluation by your physician. - Problem is new. - Symptoms are unchanged. Signatures: Jorden Dupree MD MD rn Baxter, Heather, RN RN hb Lewis, Lynsay, RN RN ll1 Corrections: (The following items were deleted from the chart) 10:59 10:34 01/13/2021 10:34 Discharged to Home. Impression: Urinary tract infection, site ll1 not specified. Condition is Stable. Forms are Medication Reconciliation Form, Thank You Letter, Antibiotic Education, Prescription Opioid Use. Follow up: Private Physician; When: As needed; Reason: Recheck today's complaints, Re-evaluation by your physician. Problem is new. Symptoms are unchanged. rn
--- NOTE | 2021-01-13 10:35 | ER ---
Nurse's Notes [facility] Name: Giovanna Lou Age: 35 yrs Sex: Female : 1985 Arrival Date: 01/13/2021 Time: 09:42 Bed 14 Private MD: Diagnosis: Urinary tract infection, site not specified Presentation: 01/13 09:59 Chief complaint: Seen in ED 2 days ago for UTI, reports worsening pain and blood in hb urine today. Coronavirus screen: At this time, the client does not indicate any symptoms associated with coronavirus-19. Ebola Screen: No symptoms or risks identified at this time. Initial Sepsis Screen: Does the patient meet any 2 criteria? No. Patient's initial sepsis screen is negative. Does the patient have a suspected source of infection? No. Patient's initial sepsis screen is negative. Risk Assessment: Do you want to hurt yourself or someone else? Patient reports no desire to harm self or others. Onset of symptoms was January 09, 2021. 09:59 Method Of Arrival: Ambulatory hb 09:59 Acuity: CECILIA 3 hb DIRECTOR OF EXHIBITS: 10:59 LMP N/A - control method ll1 Historical: - Allergies: 10:01 No Known Allergies; hb - Immunization history:: Adult Immunizations up to date. - Family history:: not pertinent. - Social history:: Smoking status: Patient denies any tobacco usage or history of. - Hospitalizations: : No recent hospitalization is reported. Screenin:45 Abuse screen: Denies threats or abuse. Nutritional screening: No deficits noted. ll1 Tuberculosis screening: No symptoms or risk factors identified. Fall Risk None identified. Total Sanchez Fall Scale indicates No Risk (0-24 pts). Assessment: 10:44 General: Appears in no apparent distress. Behavior is calm, cooperative, appropriate ll1 for age. Pain: Denies pain. Neuro: No deficits noted. Cardiovascular: No deficits noted. : Urine is clear, orange tinged Reports burning with urination. Vital Signs: 09:59 BP 109 / 60; Pulse 77; Resp 16; Temp 98.2; Pulse Ox 100% ; Pain 8/10; hb ED Course: 09:42 Patient arrived in ED. mr 10:00 Triage completed. hb 10:01 Arm band placed on. hb 10:22 Jorden Dupree MD is Attending Physician. rn 10:22 Barney Sears, MAX is Primary Nurse. ll1 10:45 Patient has correct armband on for positive identification. Bed in low position. Call ll1 light in reach. Side rails up X 1. Cardiac monitoring not applicable on this patient. 10:59 No provider procedures requiring assistance completed. Patient did not have IV access ll1 during this emergency room visit. Administered Medications: 10:42 Drug: Rocephin (cefTRIAXone) 1 grams Route: IM; Site: left gluteus; ll1 10:59 Follow up: Response: No adverse reaction; RASS: Alert and Calm (0) ll1 Outcome: 10:34 Discharge ordered by MD. rn 10:59 Discharged to home ambulatory. ll1 10:59 Condition: stable 10:59 Discharge instructions given to patient, Instructed on discharge instructions, follow up and referral plans. medication usage, Demonstrated understanding of instructions, follow-up care, medications, Prescriptions given X 1. 10:59 Patient left the ED. ll1 Signatures: Arnie Caterina Jorden Martinez MD MD rn Baxter, Heather, RN RN hb Lewis, Lynsay, MAX RN ll1
[2021-01-13] MEDS ORDERED: LIDOCAINE 1% MPF 2 ML AMPULE ONE (10:53)
[2021-01-13] MEDS ORDERED: CEFTRIAXONE 1000 MG/VIAL ONE (10:53)
[2021-01-13 11:16] VITALS: BP 109/60; TEMP 98.2; O2SAT 100
== END 2021-01-13 10:59 | disposition home or self-care (01) ==
LOC: ER 09:39
DX: N39.0 Urinary tract infection, site not specified (principal); R31.9 Hematuria, unspecified
CPT/HCPCS: 96372; 99283; J2001

== ENCOUNTER → 2023-11-25 | Emergency (ER) | payer SELFPAY ==
[~2023-11-25] MED LIST: CEFTRIAXONE 1000 MG/VIAL ONE; CODEINE 30MG/APAP 300MG TAB ONE; LIDOCAINE 1% MPF 2 ML AMPULE ONE
--- OUTSIDE RECORDS SUMMARY | 2023-11-25 21:55 | XMS REPORT | Continuity of Care Document ---
Author Name Unknown Address [address] [facility] [address] [place] [address] [facility] thconnect Address [address] [facility] [address] [place] [address] Care Team Providers Care Industrial Sewer Name Role Phone GC_[email or web address]_S Attending Clinician Ruthie Caceres RN, Margarette Attending Clinician Unavailab Aura Kraft DO Attending Clinician Doctor Unassigned, [place] Attending Clinician AURELIO Newton Attending Clinician Unavailable GRICELDA_GCBZW_Kayandya_S Admitting Clinician Ruthie gann Payers Payer Name Policy Type Policy Number Effective Date Expirati on Date Source SELF-PAY [id number] MEDICAID ALIEN PENDING PENDING 2019 00:00:00 2019 00:00:00 Allergies, Adverse Reactions, Alerts Allergy Name Allergy Type Status Severity Reaction(s) Onset Date Inactive Date Treating Clinician Comments Source NO KNOWN ALLERGIE S Drug Class Active [facility] Encounters Start Date/Time End Date/Time Encounter Type Admission Type Attending Clinicians Care Facility Care Department Encounter ID Source 2023-02-12 20:24:40 Outpatient IBNS IBNS [id number] - [id number] Denys Tomasz 2023-08-23 00:00:00 2023-08-23 00:00:00 Outpatient GRICELDA_GCBZW_Ka diyala_S PRIV [facility] [id number] [facility] 2020-11-17 00:00:00 2020-11-17 00:00:00 Telephone Margarette Caceres [facility] [id number] 2020-11-11 13:42:00 2020-11-11 14:49:[address] [facility] [id number] 2020-11-11 13:12:00 2020-11-11 13:12:00 Emergency X [facility] ERT [id number] [facility] 2020-11-11 00:00:00 2020-11-11 00:00:00 Orders Only Doctor Unassigned, [place] [facility] [id number] 2019-09-15 00:32:39 2019-09-15 02:23:00 Emergency X SHAY VILLALOBOSCHRISTOPHERARUN [facility] ERT [id number] [facility] Results Test Description Test Time Test Comments Results Result Co mments Source [id number] 06:39:13* Test Item Value Reference Range Interpretation Comme [facility] FERRITIN (test code = 2075) 110 NG/ML 13-200 VITAMIN B 12 AND FOLIC [id number] 06:39:13* Test Item Value Reference Range Interpretation Comme [facility] VITAMIN B-12 (test code = 2840) 412 PG/ML 200-950 FOLIC ACID (test code = 2695) >20.0 UG/L SEE BELOW INTERPRETI VE RANGES DEFICIENCY . . . . . . . . . . . . . . . UG/L <4.0 POSSIBLE DEFICIENCY. . . . . . . . . . . UG/L 4.0-5.9 SUFFICIENT . . . . . . . . . . . . . . . UG/L >=6.0 [facility] has important pathology staff changes effective 12/22/2022. New pathology staff will provide uninterrupted, excellent patient care and clinical consultation. See URL: [email or web address]. UNLESS OTHERWISE INDICATED, ALL TESTING PERFORMED AT [facility] [address] [place] [address] MARZIPAN MOLDER: JASMEET CHOWDARY M.D. [place] NUMBER [id number] [facility] [place]. [id number] 04:33:07* Test Item Value Reference Range Interpretation Comme nts TRANSFERRIN (test code = 4936) 306 MG/DL 200-360 LIPID [id number] 04:32:35* Test Item Value Reference Range Interpretation Comme nts CHOLESTEROL (test code = 2210) 148 MG/DL <200 TRIGLYCERIDES (test code = 2232) 82 MG/DL <150 HDL CHOLESTEROL (test code = 2220) 43 MG/DL >39 CALC LDL CHOL (test code = 2237) 88 MG/DL <100 NOTE: CALCULATED LDL IS BASED ON NEERAJ-HUDDLESTON METHOD WHICHINCLUDES ADJUSTABLE TRIGLYCERIDE:VLDL CHOLESTEROL RATIO.THIS FACTOR VARIES BY MEASURED TRIGLYCERIDE AND NON-HDLCHOLESTEROL CONCENTRATIONS WITH INCREASED CALCULATED LDL SEENIN HIGHER TRIGLYCERIDE OR LOWER NON-HDL SPECIMENS. FOR MOREINFORMATION, SEE CLIENT ANNOUNCEMENT AT [email or web address] RATIO LDL/HDL (test code = 2238) 2.05 RATIO <3.22 IRON, [id number] 04:32:35* Test Item Value Reference Range Interpretation Comme nts IRON, SERUM (test code = 2222) 71 UG/DL 37-145 HEMOGLOBIN [id number] 04:04:39* Test Item Value Reference Range Interpretation Comme nts HEMOGLOBIN A1c (test code = 61986) 5.1 % 4.2-5.6 CBC W/AUTO DIFF WITH [id number] 03:24:12* Test Item Value Reference Range Interpretation Comme nts WBC (test code = 1001) 6.8 K/UL 3.5-11.0 RBC (test code = 1002) 4.38 M/UL 3.80-5.40 HEMOGLOBIN (test code = 1003) 12.9 G/DL 11.5-15.5 HEMATOCRIT (test code = 1004) 39.1 % 34.0-45.0 MCV (test code = 1005) 89.3 fL 80.0-99.0 MCH (test code = 1006) 29.5 PG 25.0-33.0 MCHC (test code = 1007) 33.0 G/DL 31.0-36.0 RDW (test code = 1038) 12.7 % 11.5-15.0 NEUTROPHILS (test code = 1008) 61.3 % LYMPHOCYTES (test code = 1010) 29.9 % MONOCYTES (test code = 1011) 6.7 % EOSINOPHILS (test code = 1012) 1.5 % BASOPHILS (test code = 1013) 0.3 % IMMATURE GRANULOCYTES (test code = 1036) 0.3 % NUCLEATED RBCS (test code = 1065) 0.0 /100 WBC'S See_Comment [Automated messa ge] The system which generated this result transmitted reference range: 0.0. The reference range was not used to interpret this result as normal/abnormal. PLATELET COUNT (test code = 1015) 342 K/UL 130-400 ABSOLUTE NEUTROPHILS (test code = 1066) 4.15 K/UL 1.50-7.50 ABSOLUTE LYMPHOCYTES (test code = 1067) 2.02 K/UL 1.00-4.00 ABSOLUTE MONOCYTES (test code = 1068) 0.45 K/UL 0.20-1.00 ABSOLUTE EOSINOPHILS (test code = 1040) 0.10 K/UL 0.00-0.50 ABSOLUTE BASOPHILS (test code = 1069) 0.02 K/UL 0.00-0.20 ABS IMMATURE GRANULOCYTES (test code = 1020) 0.02 K/UL 0.00-0.10 ABS NUCLEATED RBCS (test code = 00372) 0.00 K/UL 0.00-0.11 CBC W/AUTO DIFF WITH [id number] 08:58:52* Test Item Value Reference Range Interpretation Comme nts WBC (test code = 1001) 6.9 K/UL 3.5-11.0 RBC (test code = 1002) 4.56 M/UL 3.80-5.40 HEMOGLOBIN (test code = 1003) 13.3 G/DL 11.5-15.5 HEMATOCRIT (test code = 1004) 41.2 % 34.0-45.0 MCV (test code = 1005) 90.4 fL 80.0-99.0 MCH (test code = 1006) 29.2 PG 25.0-33.0 MCHC (test code = 1007) 32.3 G/DL 31.0-36.0 RDW (test code = 1038) 13.0 % 11.5-15.0 NEUTROPHILS (test code = 1008) 64.4 % LYMPHOCYTES (test code = 1010) 29.2 % MONOCYTES (test code = 1011) 4.1 % EOSINOPHILS (test code = 1012) 1.6 % BASOPHILS (test code = 1013) 0.4 % IMMATURE GRANULOCYTES (test code = 1036) 0.3 % NUCLEATED RBCS (test code = 1065) 0.0 /100 WBC'S See_Comment [Automated Snip.lya ge] The system which generated this result transmitted reference range: 0.0. The reference range was not used to interpret this result as normal/abnormal. PLATELET COUNT (test code = 1015) 352 K/UL 130-400 ABSOLUTE NEUTROPHILS (test code = 1066) 4.44 K/UL 1.50-7.50 ABSOLUTE LYMPHOCYTES (test code = 1067) 2.01 K/UL 1.00-4.00 ABSOLUTE MONOCYTES (test code = 1068) 0.28 K/UL 0.20-1.00 ABSOLUTE EOSINOPHILS (test code = 1040) 0.11 K/UL 0.00-0.50 ABSOLUTE BASOPHILS (test code = 1069) 0.03 K/UL 0.00-0.20 ABS IMMATURE GRANULOCYTES (test code = 1020) 0.02 K/UL 0.00-0.10 ABS NUCLEATED RBCS (test code = 66736) 0.00 K/UL 0.00-0.11 COMPREHENSIVE METABOLIC [id number] 06:08:47* Test Item Value Reference Range Interpretation Comme nts GLUCOSE (test code = 2217) 124 MG/DL 70-99 H BUN (test code = 2208) 11 MG/DL 6-20 CREATININE (test code = 2214) 0.68 MG/DL 0.60-1.30 eGFR (2020 CKD-EPI) (test code = 65367) 115 ML/MIN/1.73 >60 CALC BUN/CREAT (test code = 2235) 16 RATIO 6-28 SODIUM (test code = 223) 142 MEQ/L 133-146 POTASSIUM (test code = 2228) 4.2 MEQ/L 3.5-5.4 CHLORIDE (test code = 2215) 106 MEQ/L 95-107 CARBON DIOXIDE (test code = 2205) 23 MEQ/L 19-31 CALCIUM (test code = 2208) 9.6 MG/DL 8.5-10.5 PROTEIN, TOTAL (test code = 2228) 7.2 G/DL 6.1-8.3 ALBUMIN (test code = 2200) 4.6 G/DL 3.5-5.2 CALC GLOBULIN (test code = 0) 2.6 G/DL 1.9-3.7 CALC A/G RATIO (test code = 2233) 1.8 RATIO 1.0-2.6 BILIRUBIN, TOTAL (test code = 2206) <0.2 MG/DL See_Comment [Automated me ssage] The system which generated this result transmitted reference range: <=1.2. The reference range was not used to interpret this result as normal/abnormal. ALKALINE PHOSPHATASE (test code = 2203) 63 U/L 40-112 AST (test code = 8) 19 U/L 9-40 ALT (test code = 2219) 17 U/L 5-40 UNLESS OTHERWISE INDICATED, ALL TESTING PERFORMED [facility] [address] [place] [address] MARZIPAN MOLDER: JASMEET CHOWDARY M.D. CLIA NUMBER [id number] [facility] [place]. [id number] OVA AND PARASITES WITH TRICHROME [id number] 20:34:02* Test Item Value Reference Range Interpretation Comme nts O AND P CONCENTRATE #1 (test code = 598793) NEGATIVE NEGATIVE O AND P TRICHROME #1 (test code = 414513) NEGATIVE NEGATIVE O AND P CONCENTRATE #2 (test code = 241614) NEGATIVE NEGATIVE O AND P TRICHROME #2 (test code = 003239) NEGATIVE NEGATIVE O AND P CONCENTRATE #3 (test code = 289209) TEST NOT PERFORMED NEGATIVE NO SPECIMEN RECEIVED FOR TESTING. CHARGES DELETED. O AND P TRICHROME #3 (test code = 523996) TEST NOT PERFORMED NEGATIVE NO SPECIMEN RECEIVED FOR TESTING. CHARGES DELETED. UNLESS OTHERWISE INDICATED, ALL TESTING PERFORMED [facility] [address] [place] [address] MARZIPAN MOLDER: JASMEET CHOWDARY M.D. CLIA NUMBER [id number] [place]. [id number] OVA AND PARASITES WITH TRICHROME [id number] 20:28:13* Test Item Value Reference Range Interpretation Comme nts O AND P CONCENTRATE #1 (test code = 734899) NEGATIVE NEGATIVE O AND P TRICHROME #1 (test code = 924311) NEGATIVE NEGATIVE O AND P CONCENTRATE #2 (test code = 167660) TEST NOT PERFORMED NEGATIVE NO SPECIMEN RECEIVED FOR TESTING. CHARGES DELETED. O AND P TRICHROME #2 (test code = 302762) TEST NOT PERFORMED NEGATIVE NO SPECIMEN RECEIVED FOR TESTING. CHARGES DELETED. O AND P CONCENTRATE #3 (test code = 162615) TEST NOT PERFORMED NEGATIVE NO SPECIMEN RECEIVED FOR TESTING. CHARGES DELETED. O AND P TRICHROME #3 (test code = 811391) TEST NOT PERFORMED NEGATIVE NO SPECIMEN RECEIVED FOR TESTING. CHARGES DELETED. UNLESS OTHERWISE INDICATED, ALL TESTING PERFORMED [facility], [facility]. [address] [place] [address] MARZIPAN MOLDER: JASMEET CHOWDARY M.D. CLIA NUMBER [id number] [place]. [id number] CALPROTECTIN, [id number] 18:58:18* Test Item Value Reference Range Interpretation Comme nts CALPROTECTIN, FECAL (test code = 41851) 69 mcg/g <50 H Interpretive inf ormation:<50 Normal 50 - 120 Borderline, re-evaluate in 4-6 weeks>120 Abnormal, suggestive of IBD Fecal calprotectin is an indicator of neutrophils in stool and notspecific for inflammatory bowel disease (IBD). Other conditionsincluding infections, diverticular disease, proton pump inhibitors,and neoplasms, among others, can result in elevated calprotectin.Patients with inactive IBD may not have elevated calprotectinlevels. TESTING PERFORMED AT [facility] [address] [place] [address], [address] [address] CLIA NO: [id number] UNLESS OTHERWISE INDICATED, ALL TESTING [facility]FORMED [facility], [facility]. [address] [place] [address] MARZIPAN MOLDER: JASMEET CHOWDARY M.D. CLIA NUMBER [id number] [place] [id number] FECAL FAT, [id number] 16:06:44* Test Item Value Reference Range Interpretation Comme nts FECAL NEUTRAL FAT (test code = 12119) Normal Normal FECAL SPLIT FAT (test code = 10854) Normal Normal INTERPRETIVE INF ORMATION: Fecal Fat QualitativeNeutral fats include the monoglycerides, diglycerides, andtriglycerides while split fats are the free fatty acidsthat are liberated from them. Impaired synthesis orsecretion of pancreatic enzymes or bile may cause anincrease in neutral fats while an increase in split fats suggests impaired absorption of nutrients. TESTING PERFORMED AT [facility] [address] [place] [address] [place]. [id number] CLIA NO. [id number] UNLESS OTHERWISE INDICATED, ALL TESTING PERFORMED [facility] [address] [place] [address] MARZIPAN MOLDER: JASMEET CHOWDARY M.D. CLIA NUMBER [id number] [place] [id number] COMPREHENSIVE METABOLIC [id number] 03:41:46* Test Item Value Reference Range Interpretation Comme nts GLUCOSE (test code = 2217) 80 MG/DL 70-99 BUN (test code = 8) 8 MG/DL 6-20 CREATININE (test code = 2214) 0.69 MG/DL 0.60-1.30 eGFR (2020 CKD-EPI) (test code = 50390) 115 ML/MIN/1.73 >60 CALC BUN/CREAT (test code = 2235) 12 RATIO 6-28 SODIUM (test code = 2231) 140 MEQ/L 133-146 POTASSIUM (test code = 2228) 4.5 MEQ/L 3.5-5.4 CHLORIDE (test code = 2215) 106 MEQ/L 95-107 CARBON DIOXIDE (test code = 2206) 20 MEQ/L 19-31 CALCIUM (test code = 2209) 9.5 MG/DL 8.5-10.5 PROTEIN, TOTAL (test code = 2229) 7.2 G/DL 6.1-8.3 ALBUMIN (test code = 2201) 4.5 G/DL 3.5-5.2 CALC GLOBULIN (test code = 2240) 2.7 G/DL 1.9-3.7 CALC A/G RATIO (test code = 2234) 1.7 RATIO 1.0-2.6 BILIRUBIN, TOTAL (test code = 2207) 0.4 MG/DL See_Comment [Automated me ssage] The system which generated this result transmitted reference range: <=1.2. The reference range was not used to interpret this result as normal/abnormal. ALKALINE PHOSPHATASE (test code = 2204) 74 U/L 40-112 AST (test code = 2218) 18 U/L 9-40 ALT (test code = 2219) 15 U/L 5-40 UNLESS OTHERWISE INDICATED, ALL TESTING [facility]FORMED [facility] [address] [place] [address] MARZIPAN MOLDER: JASMEET CHOWDARY M.D. CLIA NUMBER [id number] [facility] [place]. [id number]
--- NOTE | 2023-11-25 23:16 | EDPHYS ---
Physician Documentation [facility] Name: Giovanna Lou Age: 38 yrs Sex: Female : 1985 Arrival Date: 11/25/2023 Time: 21:51 Bed 10 Private MD: ED Physician Ramonita Morris HPI: 11/25 22:17 This 38 yrs old Female presents to ER via Ambulatory with complaints of Fever, sb4 Vomiting, Sore Throat. 22:17 sore throat and fever x 24 hours. one episode of vomitus. has been taking tylenol and sb4 advil with minimal relief in symptoms. light cough as well. no ear pain or sinus congestion. 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 - Social history:: Smoking status: Reported history of juuling and/or vaping. ROS: 22:17 Cardiovascular: Negative for chest pain, palpitations, and edema, sb4 22:17 Constitutional: Positive for fever, 22:17 ENT: Positive for sore throat, 22:17 Respiratory: Positive for cough, 22:17 Abdomen/GI: Positive for nausea and vomiting, 22:17 All other systems are negative, Exam: 22:17 Constitutional: This is a well developed, well nourished patient who is awake, alert, sb4 and in no acute distress. Head/Face: Normocephalic, atraumatic. Eyes: Extra-ocular motions intact. Periorbital areas with no swelling, redness, or edema. Cardiovascular: Regular rate and rhythm with a normal S1 and S2. Respiratory: Lungs have equal breath sounds bilaterally, clear to auscultation and percussion. No rales, rhonchi or wheezes noted. No increased work of breathing, no retractions or nasal flaring. Abdomen/GI: Soft, non-tender, no distension. Skin: Warm, dry with normal turgor. Normal color with no rashes, no lesions, and no evidence of cellulitis. MS/ Extremity: Pulses equal, no cyanosis. Neurovascular intact. Full, normal range of motion. Neuro: Awake and alert, GCS 15, oriented to person, place, time, and situation. Motor strength 5/5 in all extremities. Sensory grossly intact. 22:17 ENT: TM's: are normal, no acute changes, Posterior pharynx: Airway: normal, no evidence of obstruction, Tonsils: bilaterally enlarged, with erythema, swelling, that is mild, erythema, that is moderate, exudate, that is mild, Vital Signs: 22:02 BP 115 / 68; Pulse 102; Resp 18 S; Temp 98.7(O); Pulse Ox 99% on R/A; Weight 63.5 kg as6 (R); Height 4 ft. 11 in. (R); Pain 6/10; 22:02 Body Mass Index 28.28 (63.50 kg, 149.86 cm) as6 22:02 Pain Scale: Adult as6 MDM: 22:06 Patient medically screened. sb4 22:17 Differential diagnosis: covid, flu, strep, pharyngitis, tonsillitis. sb4 23:14 Data reviewed: vital signs, nurses notes, lab test result(s), and as a result, I will sb4 discharge patient. Counseling: I had a detailed discussion with the patient and/or guardian regarding the historical points, exam findings, and any diagnostic results supporting the discharge/admit diagnosis, lab results, to return to the emergency department if symptoms worsen or persist or if there are any questions or concerns that arise at home. 11/25 22:15 Order name: SARS RAPID; Complete Time: 23:22 sb4 11/25 22:15 Order name: Flu; Complete Time: 23:22 sb4 11/25 22:15 Order name: Strep; Complete Time: 23:14 sb4 Administered Medications: 22:52 Drug: Acetaminophen-Codeine PO (300 mg-30 mg) 1 tablet PO once; RASS on ADMIN: Combtv4, as6 Very Agttd3, Agttd2, Rstlss1, AlertClm0, Drwsy-1, Lt Sdtn-2, Mod Sdtn-3, Dp Sdtn-4, UnArsble-5 Route: PO; 23:28 Follow up: Response: No adverse reaction as6 23:28 Drug: Rocephin (cefTRIAXone) IM 1 grams IM once Route: IM; Site: right ventrogluteal; as6 23:29 Follow up: Response: No adverse reaction as6 Disposition Summary: 11/25/23 23:15 Discharge Ordered Notes: Location: Home sb4 Problem: new sb4 Symptoms: have improved sb4 Condition: Stable sb4 Diagnosis - Streptococcal pharyngitis sb4 Followup: sb4 - With: Private Physician - When: As needed - Reason: Recheck today's complaints, Re-evaluation by your physician Discharge Instructions: - Discharge Summary Sheet sb4 - Strep Throat, Adult, Llvr-bj-Ecms sb4 Forms: - Medication Reconciliation Form sb4 - Thank You Letter sb4 - Antibiotic Education sb4 - Prescription Opioid Use sb4 - Patient Portal Instructions sb4 - Leadership Thank You Letter sb4 Prescriptions: - Amoxicillin 875 mg Oral Tablet - take 1 tablet ORAL route every 12 hours for 10 days; 20 tablet; Refills: 0, sb4 Product Selection Permitted Signatures: Dispatcher [employer] Angel Prescott RN RN as6 Kenia Alvarenga PA-C PAMyrtleC sb4
--- NOTE | 2023-11-25 23:16 | ER ---
Nurse's Notes [facility] Name: Giovanna Lou Age: 38 yrs Sex: Female : 1985 Arrival Date: 11/25/2023 Time: 21:51 Bed 10 Private MD: Diagnosis: Streptococcal pharyngitis Presentation: 11/25 22:04 Chief complaint: Patient states: fever and sore throat. Coronavirus screen: At this as6 time, the client does not indicate any symptoms associated with coronavirus-19. Ebola Screen: No symptoms or risks identified at this time. Initial Sepsis Screen: Does the patient meet any 2 criteria? No. Patient's initial sepsis screen is negative. Does the patient have a suspected source of infection? No. Patient's initial sepsis screen is negative. Risk Assessment: Do you want to hurt yourself or someone else? Patient reports no desire to harm self or others. Onset of symptoms was November 24, 2023. 22:04 Acuity: CECILIA 4 as6 22:04 Method Of Arrival: Ambulatory as6 Triage Assessment: 22:04 General: Appears in no apparent distress. Behavior is calm, cooperative, Reports fever as6 for. Pain: Complains of pain in throat. EENT: Reports difficulty swallowing. 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 - Social history:: Smoking status: Reported history of juuling and/or vaping. Screenin:28 [facility] ED Fall Risk Assessment (Adult) Score/Fall Risk Level 0 - 2 = Low Risk. Abuse as6 screen: Denies threats or abuse. Denies injuries from another. Nutritional screening: No deficits noted. Tuberculosis screening: No symptoms or risk factors identified. Vital Signs: 22:02 BP 115 / 68; Pulse 102; Resp 18 S; Temp 98.7(O); Pulse Ox 99% on R/A; Weight 63.5 kg as6 (R); Height 4 ft. 11 in. (R); Pain 6/10; 22:02 Body Mass Index 28.28 (63.50 kg, 149.86 cm) as6 22:02 Pain Scale: Adult as6 ED Course: 21:53 Patient arrived in ED. es 21:54 Ken[facility]varenga [facility] sb4 21:54 Ramonita Morris is Attending Physician. sb4 22:02 Arm band placed on. as6 22:04 Triage completed. as6 23:28 Bed in low position. Call light in reach. Provided Education on: need for abx use. as6 23:28 No provider procedures requiring assistance completed. Patient did not have IV access as6 during this emergency room visit. Administered Medications: 22:52 Drug: Acetaminophen-Codeine PO (300 mg-30 mg) 1 tablet PO once; RASS on ADMIN: Combtv4, as6 Very Agttd3, Agttd2, Rstlss1, AlertClm0, Drwsy-1, Lt Sdtn-2, Mod Sdtn-3, Dp Sdtn-4, UnArsble-5 Route: PO; 23:28 Follow up: Response: No adverse reaction as6 23:28 Drug: Rocephin (cefTRIAXone) IM 1 grams IM once Route: IM; Site: right ventrogluteal; as6 23:29 Follow up: Response: No adverse reaction as6 Medication: 23:29 VIS not applicable for this client. as6 Outcome: 23:15 Discharge ordered by MD. sb4 23:28 Discharged to home ambulatory, as6 23:28 Condition: stable 23:28 Discharge instructions given to patient, Instructed on discharge instructions, follow up and referral plans. medication usage, Demonstrated understanding of instructions, follow-up care, medications, Prescriptions given X 1, 23:35 Patient left the ED. as6 Signatures: Mable Orozco Ashby, RN RN as6 Kenia Alvarenga PA-C PA-C sb4
[2023-11-25 23:22] LABS: SARS-CoV-2 Antigen Rapid Res Negative (Negative)
[2023-11-25 23:56] VITALS: BP 115/68; TEMP 98.7; O2SAT 99
== END ==
LOC: ER 21:51
DX: J02.0 Streptococcal pharyngitis (principal); Z11.52 Encounter for screening for COVID-19
CPT/HCPCS: 36415; 87081; 87804; 87811; J0696

== ENCOUNTER 2024-12-26 23:16 | Emergency (ER) | payer SELFPAY ==
--- OUTSIDE RECORDS SUMMARY | 2024-12-26 23:20 | XMS REPORT | Continuity of Care Document ---
Author Name Unknown Address [address] [facility] [address] [place] [address] [facility] thconnect Address [address] [facility] [address] [place] [address] Care Team Providers Care Acoustical Installer Name Role Phone [email or web address]_S Attending Clinician Ruthie Caceres RN, Margarette Attending Clinician UnavailAura Walker DO Attending Clinician [phone] Doctor Unassigned, [place] Attending Clinician AURELIO Newton Attending Clinician Unavailable GRICELDA_GCBZW_Kayandya_S Admitting Clinician Ruthie gann Payers Payer Name Policy Type Policy Number Effective Date Expirati on Date Source SELF-PAY [id number] MEDICAID [place] PENDING PENDING 2019 00:00:00 2019 00:00:00 Allergies, Adverse Reactions, Alerts Allergy Name Allergy Type Status Severity Reaction(s) Onset Date Inactive Date Treating Clinician Comments Source NO KNOWN ALLERGIE S Drug Class Active [facility] Encounters Start Date/Time End Date/Time Encounter Type Admission Type Attending Clinicians Care Facility Care Department Encounter ID Source 2023-02-12 20:24:40 Outpatient IBNS IBNS [id number] - [id number] Denys Tomasz 2023-08-23 00:00:00 2023-08-23 00:00:00 Outpatient GRICELDA_GCBZW_Ka maryayala_S PRIV PRIV [id number] [facility] 2020-11-17 00:00:00 2020-11-17 00:00:00 Telephone Margarette Caceres [facility] [id number] 2020-11-11 13:42:00 2020-11-11 14:49:00 Emergency Aura Greenberg [facility] [id number] 2020-11-11 13:12:00 2020-11-11 13:12:00 Emergency X [facility] ERT [id number] [facility] 2020-11-11 00:00:00 2020-11-11 00:00:00 Orders Only Doctor Unassigned, [place] [facility] [id number] 2019-09-15 00:32:39 2019-09-15 02:23:00 Emergency X SHAY VILLALOBOSESTRADA [facility] ERT [id number] [facility] Results Test Description Test Time Test Comments Results Result Co mments Source [id number] 06:39:13* Test Item Value Reference Range Interpretation Comme [facility] FERRITIN (test code = 2075) 110 NG/ML 13-200 VITAMIN B 12 AND FOLIC [id number] 06:39:13* Test Item Value Reference Range Interpretation Comme [facility] VITAMIN B-12 (test code = 2840) [...] . . . . . UG/L >=6.0 [facility] has important pathology staff changes effective 12/22/2022. New pathology staff will provide uninterrupted, excellent patient care and clinical consultation. See URL: [email or web address]. UNLESS OTHERWISE INDICATED, ALL TESTING PERFORMED AT [facility] [address] [place] [address] PHOTOGRAPHIC PROCESS WORKER: JASMEET CHOWDARY M.D. [place] NUMBER [id number] [facility] [place]. [id number] 04:33:07* Test Item Value Reference Range Interpretation Comme nts TRANSFERRIN (test code = 4936) 306 MG/DL 200-360 LIPID [id number] 04:32:35* Test Item Value Reference Range Interpretation [...] SPECIMENS. FOR MOREINFORMATION, SEE CLIENT ANNOUNCEMENT AT [email or web address] RISK RATIO LDL/HDL (test code = 2238) 2.05 RATIO <3.22 IRON, [id number] 04:32:35* Test Item Value Reference Range Interpretation Comme nts IRON, SERUM (test code = 2222) 71 UG/DL 37-145 HEMOGLOBIN [id number] 04:04:39* Test Item Value Reference Range Interpretation Comme nts HEMOGLOBIN A1c (test code = 48349) 5.1 % 4.2-5.6 CBC W/AUTO DIFF WITH [id number] 03:24:12* Test Item Value Reference Range Interpretation [...] 0.00-0.10 ABS NUCLEATED RBCS (test code = 09346) 0.00 K/UL 0.00-0.11 CBC W/AUTO DIFF WITH [id number] 08:58:52* Test Item Value Reference Range Interpretation [...] = 1065) 0.0 /100 WBC'S See_Comment [Automated [employer] ge] The system which generated this result [...] 0.00-0.10 ABS NUCLEATED RBCS (test code = 54041) 0.00 K/UL 0.00-0.11 COMPREHENSIVE METABOLIC [id number] 06:08:47* Test Item Value Reference Range Interpretation Comme nts GLUCOSE (test code = 2217) 124 MG/DL 70-99 H BUN (test code = 2208) 11 MG/DL 6-20 CREATININE (test code = 2214) 0.68 MG/DL 0.60-1.30 eGFR (2020 CKD-EPI) (test code = 59017) 115 ML/MIN/1.73 >60 CALC BUN/CREAT (test code = 2235) 16 RATIO 6-28 SODIUM (test code = 223) 142 MEQ/L 133-146 POTASSIUM (test code = 2227) 4.2 MEQ/L 3.5-5.4 CHLORIDE (test code = 5) 106 MEQ/L 95-107 CARBON DIOXIDE (test code [...] 63 U/L 40-112 AST (test code = 2217) 19 U/L 9-40 ALT (test code = 2218) 17 U/L 5-40 UNLESS OTHERWISE INDICATED, ALL TESTING PERFORMED [facility] [address] [place] [address] PHOTOGRAPHIC PROCESS WORKER: JASMEET CHOWDARY M.D. CLIA NUMBER [id number] [facility] [place]. [id number] OVA AND PARASITES WITH TRICHROME [id number] 20:34:02* Test Item Value Reference Range Interpretation Comme nts O AND P CONCENTRATE #1 (test code = 009371) NEGATIVE NEGATIVE O AND P TRICHROME #1 (test code = 235300) NEGATIVE NEGATIVE O AND P CONCENTRATE #2 (test code = 654485) NEGATIVE NEGATIVE O AND P TRICHROME #2 (test code = 652061) NEGATIVE NEGATIVE O AND P CONCENTRATE #3 (test code = 011177) TEST NOT PERFORMED NEGATIVE NO SPECIMEN RECEIVED FOR TESTING. CHARGES DELETED. O AND P TRICHROME #3 (test code = 073940) TEST NOT PERFORMED NEGATIVE NO SPECIMEN RECEIVED FOR TESTING. CHARGES DELETED. UNLESS OTHERWISE INDICATED, ALL TESTING PERFORMED [facility] [address] [place], [place] [id number] PHOTOGRAPHIC PROCESS WORKER: JASMEET CHOWDARY M.D. CLIA NUMBER [id number] [place]. [id number] OVA AND PARASITES WITH TRICHROME [id number] 20:28:13* Test Item Value Reference Range Interpretation Comme nts O AND P CONCENTRATE #1 (test code = 526566) NEGATIVE NEGATIVE O AND P TRICHROME #1 (test code = 093913) NEGATIVE NEGATIVE O AND P CONCENTRATE #2 (test code = 280500) TEST NOT PERFORMED NEGATIVE NO SPECIMEN RECEIVED FOR TESTING. CHARGES DELETED. O AND P TRICHROME #2 (test code = 686057) TEST NOT PERFORMED NEGATIVE NO SPECIMEN RECEIVED FOR TESTING. CHARGES DELETED. O AND P CONCENTRATE #3 (test code = 848956) TEST NOT PERFORMED NEGATIVE NO SPECIMEN RECEIVED FOR TESTING. CHARGES DELETED. O AND P TRICHROME #3 (test code = 554622) TEST NOT PERFORMED NEGATIVE NO SPECIMEN RECEIVED FOR TESTING. CHARGES DELETED. UNLESS OTHERWISE INDICATED, ALL TESTING PERFORMED [facility], [facility]. [address] [place] [address] PHOTOGRAPHIC PROCESS WORKER: JASMEET CHOWDARY M.D. CLIA NUMBER [id number] [place]. [id number] CALPROTECTIN, [id number] 18:58:18* Test Item Value Reference Range Interpretation Comme nts CALPROTECTIN, FECAL (test code = 47697) 69 mcg/g <50 H Interpretive inf ormation:<50 Normal 50 - 120 Borderline, re-evaluate in 4-6 weeks>120 Abnormal, suggestive of IBD Fecal calprotectin is an indicator of neutrophils in stool and notspecific for inflammatory bowel disease (IBD). Other conditionsincluding infections, diverticular disease, proton pump inhibitors,and neoplasms, among others, can result in elevated calprotectin.Patients with inactive IBD may not have elevated calprotectinlevels. TESTING PERFORMED AT [facility] [address] [place] [address], [address] [address] CLIA NO: [id number] UNLESS OTHERWISE INDICATED, ALL TESTING PERFORMED [facility] [employer], [facility]. [address] [place] [address] PHOTOGRAPHIC PROCESS WORKER: JASMEET CHOWDARY M.D. CLIA NUMBER [id number] [place] [id number] FECAL FAT, [id number] 16:06:44* Test Item Value Reference Range Interpretation Comme nts FECAL NEUTRAL FAT (test code = 46687) Normal Normal FECAL SPLIT FAT (test code = 15776) Normal Normal INTERPRETIVE INF ORMATION: Fecal Fat QualitativeNeutral fats include the monoglycerides, diglycerides, andtriglycerides while split fats are the free fatty acidsthat are liberated from them. Impaired synthesis orsecretion of pancreatic enzymes or bile may cause anincrease in neutral fats while an increase in split fats suggests impaired absorption of nutrients. TESTING PERFORMED AT [facility] [address] [place] [address] [place]. [id number] CLIA NO. [id number] UNLESS OTHERWISE INDICATED, ALL TESTING PERFORMED [facility] [address] [place] [address] PHOTOGRAPHIC PROCESS WORKER: JASMEET CHOWDARY M.D. CLIA NUMBER [id number] [place]. [id number] COMPREHENSIVE METABOLIC [id number] 03:41:46* Test Item Value Reference Range Interpretation Comme nts GLUCOSE (test code = 2217) 80 MG/DL 70-99 BUN (test code = 8) 8 MG/DL 6-20 CREATININE (test code = 2214) 0.69 MG/DL 0.60-1.30 eGFR (2020 CKD-EPI) (test code = 62350) 115 ML/MIN/1.73 >60 CALC BUN/CREAT (test code [...] 5-40 UNLESS OTHERWISE INDICATED, ALL TESTING PERFORMED [facility] [address] [place] [address] PHOTOGRAPHIC PROCESS WORKER: JASMEET CHOWDARY M.D. CLIA NUMBER [id number] [facility] [place]. [id number]
[2024-12-27 01:13] LABS: Absolute Eosinophils 0.3 K/uL (0-0.5); Absolute Lymphocytes (CBC) 2.6 K/uL (0.7-4.9); Absolute Monocytes 0.6 K/uL (0.1-1.3); Absolute Neutrophil 2.8 K/uL (1.8-8.0); Basophils % 0.5 % (0-1.3); Hematocrit 35.6 % (36.0-45.0); Hemoglobin 12.3 g/dL (12.0-15.0); Lymphocytes % 41.3 % (15.3-44.8); MCH 30.7 pg (27.0-35.0); MCHC 34.6 g/dL (32.0-36.0); MCV 88.9 fL (80-100); MPV 7.4 fL (7.6-11.3); Monocytes % 8.7 % (3.3-12.3); Neutrophils % 44.5 % (41.7-73.7); Nucleated Red Blood Cells % 0.1 % (0-0); Platelets 355 thou/uL (152-406); Red Cell Distribution Width 12.7 % (12.1-15.2)
[2024-12-27 01:26] LABS: Albumin 3.4 g/dL (3.4-5.0); Albumin/Globulin Ratio 0.9 (1.1-1.8); Anion Gap 6.9 mEq/L (5.0-15.0); Bilirubin Total 0.2 mg/dL (0.2-1.0); Globulin 3.8 g/dL (2.3-3.5); Potassium 3.9 mEq/L (3.5-5.1); Protein, Total 7.2 g/dL (6.4-8.2)
[2024-12-27 01:57] LABS: Influenza A Ag Negative; Influenza B Ag Negative; SARS-CoV-2 Antigen Rapid Res Negative (Negative)
--- NOTE | 2024-12-27 02:32 | ER ---
Nurse's Notes [facility] Name: Giovanna Lou Age: 39 yrs Sex: Female : 1985 Arrival Date: 12/26/2024 Time: 23:16 Bed 2 Private MD: Diagnosis: Acute peripheral vertigo, Acute Headache, Acute viral syndrome Presentation: 12/26 23:50 Chief complaint: Patient states: dizzy since this morning, headache, and feels like vc1 head is spinning. Coronavirus screen: Client denies travel out of the [place] in the last 14 days. At this time, the client does not indicate any symptoms associated with coronavirus-19. Ebola Screen: Patient negative for fever greater than or equal to 101.5 degrees Fahrenheit, and additional compatible Ebola Virus Disease symptoms Patient denies exposure to infectious person. Patient denies travel to an Ebola-affected area in the 21 days before illness onset. No symptoms or risks identified at this time. Initial Sepsis Screen: Does the patient meet any 2 criteria? No. Patient's initial sepsis screen is negative. Does the patient have a suspected source of infection? No. Patient's initial sepsis screen is negative. Risk Assessment: Do you want to hurt yourself or someone else? Patient reports no desire to harm self or others. Onset of symptoms was December 26, 2024 at 08:00. 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 - Infectious Disease History:: Denies. - Social history:: Smoking status: Patient denies any tobacco usage or history of. - Family history:: not pertinent. Screenin:52 [facility] ED Fall Risk Assessment (Adult) History of falling in the last 3 months, vc1 including since admission No falls in past 3 months (0 pts) Confusion or Disorientation No (0 pts) Intoxicated or Sedated No (0 pts) Impaired Gait Yes (1 pt) Mobility Assist Device Used No (0 pt) Altered Elimination No (0 pt) Score/Fall Risk Level 0 - 2 = Low Risk Oriented to surroundings, Maintained a safe environment, Educated pt \T\ family on fall prevention, incl call for assistance when getting out of bed. Abuse screen: Denies threats or abuse. Nutritional screening: No deficits noted. Tuberculosis screening: No symptoms or risk factors identified. Assessment: 12/27 03:01 General: Appears in no apparent distress. uncomfortable, Behavior is calm, cooperative. al5 Pain: Complains of pain in head. Neuro: Level of Consciousness is awake, alert, obeys commands, Oriented to person, place, time, situation. Neuro: Reports dizziness, headache. Cardiovascular: Capillary refill < 3 seconds Patient's skin is warm and dry. Respiratory: Airway is patent Respiratory effort is even, unlabored, Respiratory pattern is regular, symmetrical. GI: No signs and/or symptoms were reported involving the gastrointestinal system. : No signs and/or symptoms were reported regarding the genitourinary system. EENT: No signs and/or symptoms were reported regarding the EENT system. Derm: Skin is intact, is healthy with good turgor, Skin is pink, warm \T\ dry. normal. Musculoskeletal: No signs and/or symptoms reported regarding the musculoskeletal system. Vital Signs: 12/26 23:50 Weight 70.31 kg; Height 4 ft. 10 in. ; Pain 7/10; vc1 23:54 BP 108 / 70; Pulse 68; Resp 16; Temp 98.6; Pulse Ox 97% ; vc1 12/27 03:01 BP 115 / 65; Pulse 76; Resp 16; Pulse Ox 100% on R/A; al5 12/26 23:50 Body Mass Index 32.39 (70.31 kg, 147.32 cm) vc1 12/26 23:50 Pain Scale: Adult vc1 Bunny Coma Score: 12/28 01:01 Eye Response: spontaneous(4). Motor Response: obeys commands(6). Verbal Response: sp4 oriented(5). Total: 15. ED Course: 12/26 23:21 Patient arrived in ED. gm2 23:43 Yvan Castellanos MD is Attending Physician. sp4 23:51 Triage completed. vc1 23:52 Arm band placed on right wrist. vc1 12/27 01:04 Inserted saline lock: 20 gauge in right antecubital area, using aseptic technique. Blood collected. Flushed with 10 mL NS. 01:04 COVID swab sent to lab. hw 01:05 CBC with Diff Sent. hw 01:05 CMP Sent. hw 01:05 Lipase Sent. hw 01:05 COVID-19 Ag + Flu A+B Ag Sent. hw 01:21 CBC with Diff Sent. hw 01:21 CMP Sent. hw 01:21 Lipase Sent. hw 01:21 COVID-19 Ag + Flu A+B Ag Sent. hw 02:40 Mary Jane Torres, RN is Primary Nurse. al5 03:02 Patient has correct armband on for positive identification. Bed in low position. Call al5 light in reach. Provided Education on: discharge follow up. 03:02 No provider procedures requiring assistance completed. IV discontinued, intact, al5 bleeding controlled, No redness/swelling at site. Pressure dressing applied. Administered Medications: 02:30 Not Given (Physician Discretion): ns 0.9% 1000 ml IV at 1 bolus Per protocol; to be sp4 given as a bolus over 60 minutes 02:30 Not Given (Physician Discretion): [id number] mg IVP once sp4 02:30 Not Given (Physician Discretion): repabcwklesyxr35 mg IVP once; over 1 to 2 minutes sp4 02:30 Not Given (Physician Discretion): iwmllggkyjqmvic01 mg IVP once sp4 02:56 Drug: Acetaminophen PO 1000 mg PO once Route: PO; cp4 03:06 Follow up: Response: No adverse reaction; Medication administered at discharge. al5 02:56 Drug: Ibuprofen PO 800 mg PO once Route: PO; cp4 03:05 Follow up: Response: No adverse reaction; Medication administered at discharge. al5 02:56 Drug: Promethazine PO 25 mg PO once Route: PO; cp4 03:05 Follow up: Response: No adverse reaction; Medication administered at discharge. al5 02:56 Drug: Meclizine PO 25 mg PO once Route: PO; cp4 03:05 Follow up: Response: No adverse reaction; Medication administered at discharge. al5 Medication: 12/26 23:53 VIS not applicable for this client. vc1 Outcome: 12/27 02:31 Discharge ordered by . sp4 03:05 Discharged to home via wheelchair, with family, al5 03:05 Condition: stable 03:05 Discharge instructions given to patient, Instructed on discharge instructions, follow up and referral plans. medication usage, Demonstrated understanding of instructions, follow-up care, medications, Prescriptions given X 3, 03:05 Patient left the ED. al5 Signatures: Thalia Woods RN RN vc1 Yvan Castellanos MD MD sp4 Marcia Issa cp4 Erika Gomez 2 Mary Jane Torres RN RN al5 Cindy Macias
--- NOTE | 2024-12-27 02:32 | EDPHYS ---
Physician Documentation [facility] Name: Giovanna Lou Age: 39 yrs Sex: Female : 1985 Arrival Date: 12/26/2024 Time: 23:16 Bed 2 Private MD: ED Physician Yvan Castellanos HPI: 12/26 23:43 This 39 yrs old Female presents to ER via Unassigned with complaints of sp4 Dizziness, Headache, Fever. 12/28 01:01 39-year-old female presents with complaint of dizziness headache and fever.. 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 - Infectious Disease History:: Denies. - Social history:: Smoking status: Patient denies any tobacco usage or history of. - Family history:: not pertinent. ROS: 12/28 01:01 Constitutional: Positive dizziness, positive headache, positive fever sp4 All other systems are negative, Exam: 01:01 Constitutional: This is a well developed, well nourished patient who is awake, alert, sp4 and in no acute distress. Head/Face: Normocephalic, atraumatic. Eyes: Pupils equal round and reactive to light, extra-ocular motions intact. Lids and lashes normal. Conjunctiva and sclera are not injected. Cornea within normal limits. Periorbital areas with no swelling, redness, or edema. ENT: Nares patent. No nasal discharge, no septal abnormalities noted. Tympanic membranes are normal and external auditory canals are clear. Oropharynx with no redness, swelling, or masses, exudates, or evidence of obstruction, uvula midline. Mucous membranes moist. Neck: Trachea midline, no thyromegaly or masses palpated, and no cervical lymphadenopathy. Supple, full range of motion without nuchal rigidity, or vertebral point tenderness. Chest/axilla: Normal chest wall appearance and motion. Nontender with no deformity. No lesions are appreciated. Cardiovascular: Regular rate and rhythm with a normal S1 and S2. No gallops, murmurs, or rubs. Normal PMI, no JVD. No pulse deficits. Respiratory: Lungs have equal breath sounds bilaterally, clear to auscultation and percussion. No rales, rhonchi or wheezes noted. No increased work of breathing, no retractions or nasal flaring. Abdomen/GI: Soft, with normal bowel sounds. No distension or tympany. No guarding or rebound. No evidence of tenderness throughout. Back: No spinal tenderness. No costovertebral tenderness. Skin: Warm, dry with normal turgor. Normal color with no rashes, no lesions, and no evidence of cellulitis. MS/ Extremity: Pulses equal, no cyanosis. Neurovascular intact. Full, normal range of motion. Neuro: Awake and alert, GCS 15, oriented to person, place, time, and situation. Cranial nerves II-XII grossly intact. Motor strength 5/5 in all extremities. Sensory grossly intact. Psych: Awake, alert, with orientation to person, place and time. Behavior, mood, and affect are within normal limits Vital Signs: 12/26 23:50 Weight 70.31 kg; Height 4 ft. 10 in. ; Pain 7/10; vc1 23:54 BP 108 / 70; Pulse 68; Resp 16; Temp 98.6; Pulse Ox 97% ; vc1 12/27 03:01 BP 115 / 65; Pulse 76; Resp 16; Pulse Ox 100% on R/A; al5 12/26 23:50 Body Mass Index 32.39 (70.31 kg, 147.32 cm) vc1 12/26 23:50 Pain Scale: Adult vc1 Chana Coma Score: 12/28 01:01 Eye Response: spontaneous(4). Motor Response: obeys commands(6). Verbal Response: sp4 oriented(5). Total: 15. MDM: 12/27 01:17 Medical Screening Exam initiated sp4 12/28 01:02 Differential diagnosis: generalized weakness, GI bleed, near-syncope, , sp4 sepsis, syncope. Data reviewed: vital signs, nurses notes, old medical records. ED course: Patient improved after medications. Stable for discharge home.. 12/27 00:15 Order name: COVID-19 Ag + Flu A+B Ag; Complete Time: 02:26 sp4 12/27 00:15 Order name: CBC with Diff; Complete Time: 02: sp4 12/27 00:15 Order name: CMP; Complete Time: : sp4 12/27 00:15 Order name: Lipase; Complete Time: : sp4 12/27 00:15 Order name: IV Saline Lock; Complete Time: 01:05 sp4 12/27 00:15 Order name: Labs collected and sent; Complete Time: 01:05 sp4 Administered Medications: 12/27 02:30 Not Given (Physician Discretion): ns 0.9% 1000 ml IV at 1 bolus Per protocol; to be sp4 given as a bolus over 60 minutes 02:30 Not Given (Physician Discretion): torynnsxc21 mg IVP once sp4 02:30 Not Given (Physician Discretion): lcgeccvgluusho43 mg IVP once; over 1 to 2 minutes sp4 02:30 Not Given (Physician Discretion): mg IVP once sp4 02:56 Drug: Acetaminophen PO 1000 mg PO once Route: PO; cp4 03:06 Follow up: Response: No adverse reaction; Medication administered at discharge. al5 02:56 Drug: Ibuprofen PO 800 mg PO once Route: PO; cp4 03:05 Follow up: Response: No adverse reaction; Medication administered at discharge. al5 02:56 Drug: Promethazine PO 25 mg PO once Route: PO; cp4 03:05 Follow up: Response: No adverse reaction; Medication administered at discharge. al5 02:56 Drug: Meclizine PO 25 mg PO once Route: PO; cp4 03:05 Follow up: Response: No adverse reaction; Medication administered at discharge. al5 Disposition Summary: 12/27/24 02:31 Discharge Ordered Notes: Location: Home sp4 Problem: new sp4 Symptoms: have improved sp4 Condition: Stable sp4 Diagnosis - Acute peripheral vertigo, Acute Headache, Acute viral syndrome sp4 Followup: sp4 - With: Private Physician - When: 7 - 10 days - Reason: Recheck today's complaints Discharge Instructions: - Discharge Summary Sheet sp4 - Vertigo, Krdb-in-Bmov sp4 Forms: - Patient Portal Instructions sp4 Prescriptions: - Ibuprofen 800 mg Oral Tablet - take 1 tablet ORAL route every 8 hours As needed take with food; 30 tablet; sp4 Refills: 0, Product Selection Permitted - Meclizine 25 mg Oral Tablet - take 1 tablet ORAL route every 8 hours As needed; 30 tablet; Refills: 0, sp4 Product Selection Permitted - promethazine 25 mg Oral tablet - take 1 tablet ORAL route every 6 hours As needed; 30 tablet; Refills: 0, sp4 Product Selection Permitted Signatures: Dispatcher [employer] Thalia Malhotra RN RN vc1 Yvan Castellanos MD MD sp4 Marcia Issa cp4 Mary Jane Torres RN al5
[2024-12-27] MEDS ORDERED: MECLIZINE HCL 12.5 MG TAB ONE (02:46)
[2024-12-27] MEDS ORDERED: ACETAMINOPHEN 500 MG TAB ONE (02:46)
[2024-12-27] MEDS ORDERED: PROMETHAZINE 25 MG TABLET ONE (02:47)
[2024-12-27] MEDS ORDERED: IBUPROFEN 400 MG TAB ONE (02:47)
[2024-12-27 03:10] VITALS: TEMP 98.6
[2024-12-27 03:12] VITALS: BP 115/65; O2SAT 100
== END 2024-12-27 03:05 | disposition home or self-care (01) ==
LOC: ER 23:16
DX: H81.399 Other peripheral vertigo, unspecified ear (principal); B34.9 Viral infection, unspecified; R51.9 Headache, unspecified; Z11.52 Encounter for screening for COVID-19
CPT/HCPCS: 36415; 80053; 83690; 85025; 87428; 99284; J8597; Q0169